=== PATIENT | female | born 1985 | race Caucasian/White ===

== ENCOUNTER 2018-02-03 00:55 | Emergency (ER) | payer OTHER, SELFPAY ==
[2018-02-03 01:06] VITALS: BP 114/78; PULSE 65; RESP 16; TEMP 36.2; O2SAT 99; BMI 45.4
--- NOTE | 2018-02-03 01:39 | DI.RAD.S_ITS ---
PROCEDURE: XR ELBOW RT MIN 3V INDICATIONS: elbow pain after pronation injury, over radial head TECHNIQUE: 4 views of the elbow were acquired. COMPARISON: None. FINDINGS: Bones: No fractures or dislocations. No suspicious bony lesions. Soft tissues: No elbow joint effusion. No suspicious soft tissue calcifications. IMPRESSION: No visualized acute fracture or dislocation. However, if clinical concern and/or pain persist, short interval imaging followup in 7-10 days is recommended, as occult injury cannot be definitively excluded. Dictated by: Katlin Abdul M.D. on 02/03/2018 at 9:18 Approved by: Katlin Abdul M.D. on 02/03/2018 at 9:18
--- NOTE | 2018-02-03 01:45 | ED.UPPEXIN ---
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 She was lifting a heavy basket of [place] fries and attempting to foot them over when she felt a sudden pop in her elbow since then she has had increasing pain with range of motion and some numbness in her fingers. She denies weakness. She denies any history of the same. Related Data Home Medications Medication Instructions Recorded Confirmed norethindrone (contraceptive) 0.35 mg PO QDAY #0 06/01/17 12/19/17 [Polina] Previous Rx's Medication Instructions Recorded norethindrone acetate 5 mg PO DAILY #10 tab 06/01/17 benzonatate 100 mg PO TIDP PRN #30 cap 06/13/17 ondansetron [Zofran ODT] 4 mg SUBLINGUAL Q6HP PRN #10 odt 06/13/17 norethindrone acetate [Aygestin] 5 mg PO QDAY #90 tab 06/18/17 hydrocodone-acetaminophen [[place]] 1 tab PO Q4HP PRN #20 tab 08/01/17 acyclovir 400 mg PO BID #60 tab 09/04/17 albuterol sulfate [Ventolin HFA] 2 puff INH QIDP PRN #1 ea 10/03/17 metformin 500 mg tablet 500 mg PO BID #60 tab 12/19/17 spironolactone 25 mg tablet 25 mg PO BID #60 tab 12/19/17 topiramate 50 mg tablet 50 mg PO BID #60 tab 12/19/17 Allergies Allergy/AdvReac Type Severity Reaction Status Date / Time citalopram Allergy Mild DEHYDRATED, Verified 12/19/17 11:01 N/V, MIGRAINES loratadine [From CLARITIN] Allergy Unknown Verified 12/19/17 11:01 milk Allergy Unknown Verified 12/19/17 11:01 shellfish derived Allergy Unknown Verified 12/19/17 11:01 sumatriptan [From IMITREX] Allergy Unknown Verified 12/19/17 11:01 Review of Systems Review of Systems All systems reviewed & are unremarkable except as noted in HPI and below Constitutional Denies chills, Denies fever(s), Denies lethargy and Denies weakness Eyes Denies change in vision, Denies eye discharge, Denies irritation and Denies loss of vision ENT Ears, Nose, Mouth, and Throat: Denies change in voice, Denies neck pain and Denies sore throat Cardiovascular Denies chest pain, Denies irregular heart rhythm, Denies lightheadedness, Denies palpitations, Denies dyspnea, Denies dyspnea on exertion and Denies orthopnea Respiratory Denies cough, Denies dyspnea, Denies dyspnea on exertion and Denies wheezing Gastrointestinal Gastrointestinal: Denies abdominal pain, Denies change in bowel habits, Denies diarrhea, Denies nausea and Denies vomiting Genitourinary Denies hematuria, Denies flank pain, Denies urinary incontinence and Denies urinary urgency Musculoskeletal Reports limited range of motion and Denies neck pain Integumentary/Breasts Denies pruritus, Denies erythema, Denies rash and Denies wounds Neurologic Denies confusion, Denies loss of vision and Denies weakness Psychiatric Denies anxiety, Denies confusion, Denies depression, Denies homicidal ideation and Denies suicidal ideation Endocrine Denies palpitations Hematologic/Lymphatic Denies easy bruising Allergic/Immunologic Denies wheezing PFSH Social History Smoking Status: Current every day smoker alcohol intake: current (Ocassionally) substance use type: marijuana Exam Narrative Exam Narrative: GEN: AOx3 and in mild distress EYES: Pupils are equal, round, and reactive to light and accommodation. Extraoccular muscles are intact bilaterally. There is no subconjunctival hemorrhage or exudate. CHEST: Lungs are clear to auscultation bilaterally and free of wheezes, rales, or rhonchi. Heart rate is regular rhythm, there are no murmurs, clicks, rubs, or gallops. There is no chest wall tenderness. ABD: Abdomen is soft and nontender. There is no guarding or rebound. Bowel sounds are normal in all 4 quadrants. There is no mass or organomegaly. EXT: Patient has full but painful range of motion at the right elbow. She is most tender over the radial head. There is no obvious deformity, warmth, erythema or edema. Patient is neurovascularly intact. SKIN: Warm, pink, and dry. No erythema or rash Initial Vital Signs Initial Vital Signs: Vital Signs Temperature 97.1 F L 02/03/18 01:06 Pulse Rate 65 02/03/18 01:06 Respiratory Rate 16 02/03/18 01:06 Blood Pressure 114/78 02/03/18 01:06 Pulse Oximetry 99 02/03/18 01:06 Course Orders Ordered: ED Orders 02/03/18 01:39 XR elbow RT min 3V Stat Discontinued Medications Ibuprofen (Advil) 800 mg PO NOW ONE Stop: 02/03/18 02:26 Last Admin: 02/03/18 02:25 Dose: 800 mg Vital Signs - 8 hr 02/03/18 01:06 02/03/18 02:18 Temperature 97.1 F L 98.0 F Pulse Rate 65 64 Respiratory Rate 16 18 Blood Pressure 114/78 Blood Pressure [Left Arm] 141/78 H Pulse Oximetry 99 99 Discharge Plan Departure Patient Disposition: Home, Self-Care Clinical Impression: Elbow strain Discharge Date/Time: 02/03/18 02:28 Interventions: ED Discharge Assessment Last Done: 02/03/18 02:28 Instructions: DI for Elbow Sprain Activity Restrictions/Additional Instructions: *You have been diagnosed with [ right elbow sprained ] *What to do: *Take medications as directed such as Tylenol or ibuprofen *Follow up with your primary care provider in 2-3 days, call for an appointment. Let them know you were seen in the Emergency Department and that we ask that you be seen in follow up *Return to ER if you should have any new, worsening or concerning symptoms, such as [ increasing pain, swelling, weakness or increasing numbness and tingling] Prescriptions: No Action spironolactone [Aldactone] 25 mg tablet 25 mg PO BID Qty: 60 RF: 3 metformin 500 mg tablet 500 mg PO BID Qty: 60 RF: 3 topiramate 50 mg tablet 50 mg PO BID Qty: 60 RF: 0 norethindrone (contraceptive) [[place]] 0.35 MG tablet 0.35 mg PO QDAY Qty: 0 RF: 0 norethindrone acetate 5 MG tablet 5 mg PO DAILY Qty: 10 RF: 0 benzonatate 100 MG capsule 100 mg PO TIDP PRNQty: 30 RF: 1 ondansetron [Zofran ODT] 4 MG tablet,disintegrating 4 mg Sublingual Q6HP PRNQty: 10 RF: 1 norethindrone acetate [Aygestin] 5 MG tablet 5 mg PO QDAY Qty: 90 RF: 3 hydrocodone-acetaminophen [[place]] 5 MG/325 MG tablet 1 tab PO Q4HP PRNQty: 20 RF: 0 acyclovir 400 MG tablet 400 mg PO BID Qty: 60 RF: 5 albuterol sulfate [Ventolin HFA] 90 MCG/PUFF HFA aerosol inhaler 2 puff INH QIDP PRNQty: 1 RF: 0 Referrals: Molly Baca PA-C [Primary Care Provider] -
--- NOTE | 2018-02-03 01:51 | ED_ITS ---
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 She was lifting a heavy basket of [place] fries and attempting to foot them over when she felt a sudden pop in her elbow since then she has had increasing pain with range of motion and some numbness in her fingers. She denies weakness. She denies any history of the same. Related Data Home Medications Medication Instructions Recorded Confirmed norethindrone (contraceptive) 0.35 mg PO QDAY #0 06/01/17 12/19/17 [Polina] Previous Rx's Medication Instructions Recorded norethindrone acetate 5 mg PO DAILY #10 tab 06/01/17 benzonatate 100 mg PO TIDP PRN #30 cap 06/13/17 ondansetron [Zofran ODT] 4 mg SUBLINGUAL Q6HP PRN #10 odt 06/13/17 norethindrone acetate [Aygestin] 5 mg PO QDAY #90 tab 06/18/17 hydrocodone-acetaminophen [[place]] 1 tab PO Q4HP PRN #20 tab 08/01/17 acyclovir 400 mg PO BID #60 tab 09/04/17 albuterol sulfate [Ventolin HFA] 2 puff INH QIDP PRN #1 ea 10/03/17 metformin 500 mg tablet 500 mg PO BID #60 tab 12/19/17 spironolactone 25 mg tablet 25 mg PO BID #60 tab 12/19/17 topiramate 50 mg tablet 50 mg PO BID #60 tab 12/19/17 Allergies Allergy/AdvReac Type Severity Reaction Status Date / Time citalopram Allergy Mild DEHYDRATED, Verified 12/19/17 11:01 N/V, MIGRAINES loratadine [From CLARITIN] Allergy Unknown Verified 12/19/17 11:01 milk Allergy Unknown Verified 12/19/17 11:01 shellfish derived Allergy Unknown Verified 12/19/17 11:01 sumatriptan [From IMITREX] Allergy Unknown Verified 12/19/17 11:01 Review of Systems Review of Systems All systems reviewed & are unremarkable except as noted in HPI and below Constitutional Denies chills, Denies fever(s), Denies lethargy and Denies weakness Eyes Denies change in vision, Denies eye discharge, Denies irritation and Denies loss of vision ENT Ears, Nose, Mouth, and Throat: Denies change in voice, Denies neck pain and Denies sore throat Cardiovascular Denies chest pain, Denies irregular heart rhythm, Denies lightheadedness, Denies palpitations, Denies dyspnea, Denies dyspnea on exertion and Denies orthopnea Respiratory Denies cough, Denies dyspnea, Denies dyspnea on exertion and Denies wheezing Gastrointestinal Gastrointestinal: Denies abdominal pain, Denies change in bowel habits, Denies diarrhea, Denies nausea and Denies vomiting Genitourinary Denies hematuria, Denies flank pain, Denies urinary incontinence and Denies urinary urgency Musculoskeletal Reports limited range of motion and Denies neck pain Integumentary/Breasts Denies pruritus, Denies erythema, Denies rash and Denies wounds Neurologic Denies confusion, Denies loss of vision and Denies weakness Psychiatric Denies anxiety, Denies confusion, Denies depression, Denies homicidal ideation and Denies suicidal ideation Endocrine Denies palpitations Hematologic/Lymphatic Denies easy bruising Allergic/Immunologic Denies wheezing PFSH Social History Smoking Status: Current every day smoker alcohol intake: current (Ocassionally) substance use type: marijuana Exam Narrative Exam Narrative: GEN: AOx3 and in mild distress EYES: Pupils are equal, round, and reactive to light and accommodation. Extraoccular muscles are intact bilaterally. There is no subconjunctival hemorrhage or exudate. CHEST: Lungs are clear to auscultation bilaterally and free of wheezes, rales, or rhonchi. Heart rate is regular rhythm, there are no murmurs, clicks, rubs, or gallops. There is no chest wall tenderness. ABD: Abdomen is soft and nontender. There is no guarding or rebound. Bowel sounds are normal in all 4 quadrants. There is no mass or organomegaly. EXT: Patient has full but painful range of motion at the right elbow. She is most tender over the radial head. There is no obvious deformity, warmth, erythema or edema. Patient is neurovascularly intact. SKIN: Warm, pink, and dry. No erythema or rash Initial Vital Signs Initial Vital Signs: Vital Signs Temperature 97.1 F L 02/03/18 01:06 Pulse Rate 65 02/03/18 01:06 Respiratory Rate 16 02/03/18 01:06 Blood Pressure 114/78 02/03/18 01:06 Pulse Oximetry 99 02/03/18 01:06 Course Orders Ordered: ED Orders 02/03/18 01:39 XR elbow RT min 3V Stat Discontinued Medications Ibuprofen (Advil) 800 mg PO NOW ONE Stop: 02/03/18 02:26 Last Admin: 02/03/18 02:25 Dose: 800 mg Vital Signs - 8 hr 02/03/18 01:06 02/03/18 02:18 Temperature 97.1 F L 98.0 F Pulse Rate 65 64 Respiratory Rate 16 18 Blood Pressure 114/78 Blood Pressure [Left Arm] 141/78 H Pulse Oximetry 99 99 Discharge Plan Departure Patient Disposition: Home, Self-Care Clinical Impression: Elbow strain Discharge Date/Time: 02/03/18 02:28 Interventions: ED Discharge Assessment Last Done: 02/03/18 02:28 Instructions: DI for Elbow Sprain Activity Restrictions/Additional Instructions: *You have been diagnosed with [ right elbow sprained ] *What to do: *Take medications as directed such as Tylenol or ibuprofen *Follow up with your primary care provider in 2-3 days, call for an appointment. Let them know you were seen in the Emergency Department and that we ask that you be seen in follow up *Return to ER if you should have any new, worsening or concerning symptoms , such as [ increasing pain, swelling, weakness or increasing numbness and tingling] Prescriptions: No Action spironolactone [Aldactone] 25 mg tablet 25 mg PO BID Qty: 60 RF: 3 metformin 500 mg tablet 500 mg PO BID Qty: 60 RF: 3 topiramate 50 mg tablet 50 mg PO BID Qty: 60 RF: 0 norethindrone (contraceptive) [[place]] 0.35 MG tablet 0.35 mg PO QDAY Qty: 0 RF: 0 norethindrone acetate 5 MG tablet 5 mg PO DAILY Qty: 10 RF: 0 benzonatate 100 MG capsule 100 mg PO TIDP PRNQty: 30 RF: 1 ondansetron [Zofran ODT] 4 MG tablet,disintegrating 4 mg Sublingual Q6HP PRNQty: 10 RF: 1 norethindrone acetate [Aygestin] 5 MG tablet 5 mg PO QDAY Qty: 90 RF: 3 hydrocodone-acetaminophen [[place]] 5 MG/325 MG tablet 1 tab PO Q4HP PRNQty: 20 RF: 0 acyclovir 400 MG tablet 400 mg PO BID Qty: 60 RF: 5 albuterol sulfate [Ventolin HFA] 90 MCG/PUFF HFA aerosol inhaler 2 puff INH QIDP PRNQty: 1 RF: 0 Referrals: Molly Baca PA-C [Primary Care Provider] -
[2018-02-03 02:18] VITALS: BP 141/78; PULSE 64; RESP 18; TEMP 36.7; O2SAT 99
[2018-02-03] MEDS: IBUPROFEN 400 MG TABLET 800 MG PO (02:25)
== END 2018-02-03 02:28 | disposition home or self-care (01) ==
PROVIDERS: Emergency Provider Emergency Medicine; Family Provider Physician Assistant; PCP Physician Assistant
DX: S56.911A Strain of unspecified muscles, fascia and tendons at forearm level, right arm, initial encounter (principal); T73.3XXA Exhaustion due to excessive exertion, initial encounter; Y99.0 Civilian activity done for income or pay
CPT/HCPCS: 73080; 99282; 99283

== ENCOUNTER 2018-03-16 16:14 | Emergency (ER) | payer OTHER, MEDICAID, SELFPAY ==
[2018-03-16 16:47] VITALS: BP 129/71; PULSE 62; RESP 18; TEMP 36.9; O2SAT 99; BMI 45.4
--- NOTE | 2018-03-16 18:06 | ED.FEMALEGU ---
HPI - Female Genitourinary <Taylor Walton PA-C - Last Filed: 03/16/18 21:56> General Chief complaint: Vaginal Bleeding Stated complaint: VAGINAL PROBLEMS Time Seen by Provider: 03/16/18 17:59 Source: patient Mode of arrival: ambulatory Limitations: no limitations History of Present Illness HPI Narrative: This 32-year-old female who has a history of PCOS complains of pelvic pain and abnormal bleeding. She states that she has been having recurrent problems with bleeding since she has not been able to take her norethindrone every day due to insurance issues. She states that she took this 2 weeks ago will when she started bleeding again and stopped after 3 days. 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 She indicates that this is through the pelvic area and now radiated to her back. She denies any new urinary symptoms or discharge. She states that the bleeding has actually let up somewhat. She denies any fever, bowel complaints, or other new symptoms on systems review. She has not taken any pain medication for this Related Data Home Medications Medication Instructions Recorded Confirmed norethindrone (contraceptive) 0.35 mg PO QDAY #0 06/01/17 02/19/18 [Polina] benzonatate 100 mg capsule 100 mg PO TIDP PRN cap 02/19/18 Previous Rx's Medication Instructions Recorded norethindrone acetate 5 mg PO DAILY #10 tab 06/01/17 ondansetron [Zofran ODT] 4 mg SUBLINGUAL Q6HP PRN #10 odt 06/13/17 norethindrone acetate [Aygestin] 5 mg PO QDAY #90 tab 06/18/17 acyclovir 400 mg PO BID #60 tab 09/04/17 albuterol sulfate [Ventolin HFA] 2 puff INH QIDP PRN #1 ea 10/03/17 metformin 500 mg tablet 500 mg PO BID #60 tab 12/19/17 spironolactone 25 mg tablet 25 mg PO BID #60 tab 12/19/17 topiramate 50 mg tablet 50 mg PO BID #60 tab 12/19/17 tramadol 50 mg tablet 50 mg PO Q6H #30 tab 02/19/18 Allergies Allergy/AdvReac Type Severity Reaction Status Date / Time citalopram Allergy Mild DEHYDRATED, Verified 02/19/18 14:04 N/V, MIGRAINES loratadine [From CLARITIN] Allergy Unknown Vomiting Verified 03/16/18 16:53 milk Allergy Unknown Verified 03/16/18 16:53 shellfish derived Allergy Unknown Anaphylaxis Verified 03/16/18 16:53 sumatriptan [From IMITREX] Allergy Unknown Vomiting Verified 03/16/18 16:53 Review of Systems <Taylor Walton PA-C - Last Filed: 03/16/18 21:56> Review of Systems All systems reviewed & are unremarkable except as noted in HPI and below Exam <Taylor Walton PA-C - Last Filed: 03/16/18 21:56> Narrative Exam Narrative: GENERAL APPEARANCE: Patient sitting comfortably, in no distress. HEENT: PERRL, EOMI, no scleral icterus, conjunctivae pink NECK: Supple LUNGS: Clear to auscultation bilaterally. HEART: Rate and rhythm regular, normal S1 and S2, no S3 or S4. ABDOMEN: Obese, nondistended, bowel sounds present x 4 quadrants, no masses palpable, no hepatosplenomegaly, no CVAT. She has localized tenderness in the suprapubic area without guarding or rebound EXTREMITIES: No edema, no cyanosis DERMATOLOGIC: No jaundice or exanthem NEUROLOGIC: Alert and oriented with normal speech and coordination : Normal external genitalia, normal vaginal mucosa without lesions or discharge. No CMT or adnexal tenderness. She does have some tenderness with speculum exam Initial Vital Signs Initial Vital Signs: Vital Signs Temperature 98.4 F 03/16/18 16:47 Pulse Rate 62 03/16/18 16:47 Respiratory Rate 18 03/16/18 16:47 Blood Pressure 129/71 03/16/18 16:47 Pulse Oximetry 99 03/16/18 16:47 <Kem Payan DO - Last Filed: 03/16/18 22:06> Initial Vital Signs Initial Vital Signs: Vital Signs Temperature 98.4 F 03/16/18 16:47 Pulse Rate 62 03/16/18 16:47 Respiratory Rate 18 03/16/18 16:47 Blood Pressure 129/71 03/16/18 16:47 Pulse Oximetry 99 03/16/18 16:47 Course <Taylor Walton PA-C - Last Filed: 03/16/18 21:56> Additional Information: Source of patient's pain was not clear this evening. There were no acute findings on exam nor her ultrasound. Appeared associated with tampon use. Her bleeding had improved at the time of discharge. She will rest at home this evening, given pain medication for tonight. 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 and return in the interim if any acutely worsening symptoms Orders Ordered: ED Orders 03/16/18 18:40 US pelvic complete Stat Discontinued Medications Ibuprofen (Advil) 800 mg PO NOW ONE Stop: 03/16/18 19:59 Last Admin: 03/16/18 20:08 Dose: 800 mg Oxycodone/Acetaminophen (Endocet 5/325 Prepack) 1 bottle MISC SEEINSTR ONE Stop: 03/16/18 21:09 Last Admin: 03/16/18 21:28 Dose: 1 bottle Vital Signs - 8 hr 03/16/18 16:47 03/16/18 18:49 03/16/18 20:42 Temperature 98.4 F Pulse Rate 62 55 L 57 L Respiratory Rate 18 17 16 Blood Pressure 129/71 Blood Pressure [Left Arm] 142/79 H 135/76 Pulse Oximetry 99 100 100 <Kem Payan DO - Last Filed: 03/16/18 22:06> Orders Ordered: ED Orders 03/16/18 18:40 US pelvic complete Stat Discontinued Medications Ibuprofen (Advil) 800 mg PO NOW ONE Stop: 03/16/18 19:59 Last Admin: 03/16/18 20:08 Dose: 800 mg Oxycodone/Acetaminophen (Endocet 5/325 [place]ack) 1 bottle MISC SEEINSTR ONE Stop: 03/16/18 21:09 Last Admin: 03/16/18 21:28 Dose: 1 bottle Vital Signs - 8 hr 03/16/18 16:47 03/16/18 18:49 03/16/18 20:42 Temperature 98.4 F Pulse Rate 62 55 L 57 L Respiratory Rate 18 17 16 Blood Pressure 129/71 Blood Pressure [Left Arm] 142/79 H 135/76 Pulse Oximetry 99 100 100 MDM - Female Genitourinary <Taylor Walton PA-C - Last Filed: 03/16/18 21:56> Lab Data Point of Care Testing Test Results Negative Urine Dip Bedside Urine Glucose Negative Bedside Urine Bilirubin - Negative Bedside Urine Ketone - Negative Urine Specific [place] 1.015 Bedside Urine Occult Blood + Bedside Urine pH 6.0 Bedside Urine Protein - Negative Bedside Urine Urobilinogen - Negative Bedside Urine Nitrite - Negative Bedside Urine Leukocytes - Negative Esterase Imaging Data US pelvis: Radiologist's impression: [address] [address] Ultrasound Report Signed Patient: Rosita Cooley MR#: [id number] : 1985 Acct:[id number] Age/Sex: 32 / F Date of Service: 03/16/18 Loc: ED Accession Number: [id number] Procedure: US pelvic complete Ordering Provider: Taylor Walton P.A-C PROCEDURE: US PELVIC COMPLETE INDICATIONS: PAIN, BLEEDING TECHNIQUE: Real-time scanning was performed of the pelvic organs, with image documentation. Additional endovaginal scanning was necessary due to incomplete visualization of the adnexal and endometrial structures by transabdominal scanning. COMPARISON: None. FINDINGS: Transabdominal scanning: Limited scanning through the kidneys shows no hydronephrosis. No pathologic free abdominal or pelvic fluid. Endovaginal scanning: Uterus: Uterus is normal in size at 6.9 x 3.2 x 4.4 cm. The endometrium measures 7.2 mm in combined thickness. Ovaries: The right ovary measures 3.7 x 2.7 x 2.5 cm and the left ovary measures 3.2 x 3.0 x 3.2 cm. Both ovaries have a normal echotexture. IMPRESSION: 1. Unremarkable pelvic ultrasound. Dictated by: Yumiko Claire M.D. on 03/16/2018 at 20:58 Approved by: Yumiko Claire M.D. on 03/16/2018 at 20:59 <Kem Payan DO - Last Filed: 03/16/18 22:06> Lab Data Point of Care Testing Test Results Negative Urine Dip Bedside Urine Glucose Negative Bedside Urine Bilirubin - Negative Bedside Urine Ketone - Negative Urine Specific [place] 1.015 Bedside Urine Occult Blood + Bedside Urine pH 6.0 Bedside Urine Protein - Negative Bedside Urine Urobilinogen - Negative Bedside Urine Nitrite - Negative Bedside Urine Leukocytes - Negative Esterase Discharge Plan Departure Patient Disposition: Home Clinical Impression: Pelvic pain, DUB (dysfunctional uterine bleeding) Discharge Date/Time: 03/16/18 21:34 Interventions: ED Discharge Assessment Last Done: 03/16/18 21:33 Instructions: DI for Pelvic Pain Activity Restrictions/Additional Instructions: Return if you have new or acutely worsening symptoms. Otherwise, please return home, and try using a hot pack and you can take some of the Percocet that we gave you. Please continue ibuprofen. Avoid using tampons. Please call Dr. Yadav on Sunday morning (I have written you an off work note for tomorrow) Prescriptions: No Action spironolactone [Aldactone] 25 mg tablet 25 mg PO BID Qty: 60 RF: 3 metformin 500 mg tablet 500 mg PO BID Qty: 60 RF: 3 topiramate 50 mg tablet 50 mg PO BID Qty: 60 RF: 0 benzonatate 100 mg capsule 100 mg PO TIDP PRNRF: 0 tramadol 50 mg tablet 50 mg PO Q6H Qty: 30 RF: 0 norethindrone (contraceptive) [[place]] 0.35 MG tablet 0.35 mg PO QDAY Qty: 0 RF: 0 norethindrone acetate 5 MG tablet 5 mg PO DAILY Qty: 10 RF: 0 ondansetron [Zofran ODT] 4 MG tablet,disintegrating 4 mg Sublingual Q6HP PRNQty: 10 RF: 1 norethindrone acetate [Aygestin] 5 MG tablet 5 mg PO QDAY Qty: 90 RF: 3 acyclovir 400 MG tablet 400 mg PO BID Qty: 60 RF: 5 albuterol sulfate [Ventolin HFA] 90 MCG/PUFF HFA aerosol inhaler 2 puff INH QIDP PRNQty: 1 RF: 0 Referrals: Molly Baac PA-C [Primary Care Provider] - Smith Yadav MD [Physician] - Stand Alone Forms: Work/School Restrictions <Kem Payan DO - Last Filed: 03/16/18 22:06> [facility] Att[facility]: I was immediately available in the department for consultation. Documentation has been reviewed. I agree with assessment and plan.
--- NOTE | 2018-03-16 18:40 | DI.US.S_ITS ---
PROCEDURE: US PELVIC COMPLETE INDICATIONS: PAIN, BLEEDING TECHNIQUE: Real-time scanning was performed of the pelvic organs, with image documentation. Additional endovaginal scanning was necessary due to incomplete visualization of the adnexal and endometrial structures by transabdominal scanning. COMPARISON: None. FINDINGS: Transabdominal scanning: Limited scanning through the kidneys shows no hydronephrosis. No pathologic free abdominal or pelvic fluid. Endovaginal scanning: Uterus: Uterus is normal in size at 6.9 x 3.2 x 4.4 cm. The endometrium measures 7.2 mm in combined thickness. Ovaries: The right ovary measures 3.7 x 2.7 x 2.5 cm and the left ovary measures 3.2 x 3.0 x 3.2 cm. Both ovaries have a normal echotexture. IMPRESSION: 1. Unremarkable pelvic ultrasound. Dictated by: Yumiko Claire M.D. on 03/16/2018 at 20:58 Approved by: Yumiko Claire M.D. on 03/16/2018 at 20:59
[2018-03-16 18:49] VITALS: BP 142/79; PULSE 55; RESP 17; O2SAT 100
--- NOTE | 2018-03-16 19:02 | ED_ITS ---
HPI - Female Genitourinary <Taylor Walton PA-C - Last Filed: 03/16/18 21:56> General Chief complaint: Vaginal Bleeding Stated complaint: VAGINAL PROBLEMS Time Seen by Provider: 03/16/18 17:59 Source: patient Mode of arrival: ambulatory Limitations: no limitations History of Present Illness HPI Narrative: This 32-year-old female who has a history of PCOS complains of pelvic pain and abnormal bleeding. She states that she has been having recurrent problems with bleeding since she has not been able to take her norethindrone every day due to insurance issues. She states that she took this 2 weeks ago will when she started bleeding again and stopped after 3 days. Yesterday she had increased heavy bleeding and cramps and plan to see her ear muff assembler on Sunday, however a little while before arrival she had put a tampon in, went to take it out 20 min later and she states that she had acute pain, she had to wrap the string on her finger and tug, and has had worsening pain since. She indicates that this is through the pelvic area and now radiated to her back. She denies any new urinary symptoms or discharge. She states that the bleeding has actually let up somewhat. She denies any fever, bowel complaints, or other new symptoms on systems review. She has not taken any pain medication for this Related Data Home Medications Medication Instructions Recorded Confirmed norethindrone (contraceptive) 0.35 mg PO QDAY #0 06/01/17 02/19/18 [Polina] benzonatate 100 mg capsule 100 mg PO TIDP PRN cap 02/19/18 Previous Rx's Medication Instructions Recorded norethindrone acetate 5 mg PO DAILY #10 tab 06/01/17 ondansetron [Zofran ODT] 4 mg SUBLINGUAL Q6HP PRN #10 odt 06/13/17 norethindrone acetate [Aygestin] 5 mg PO QDAY #90 tab 06/18/17 acyclovir 400 mg PO BID #60 tab 09/04/17 albuterol sulfate [Ventolin HFA] 2 puff INH QIDP PRN #1 ea 10/03/17 metformin 500 mg tablet 500 mg PO BID #60 tab 12/19/17 spironolactone 25 mg tablet 25 mg PO BID #60 tab 12/19/17 topiramate 50 mg tablet 50 mg PO BID #60 tab 12/19/17 tramadol 50 mg tablet 50 mg PO Q6H #30 tab 02/19/18 Allergies Allergy/AdvReac Type Severity Reaction Status Date / Time citalopram Allergy Mild DEHYDRATED, Verified 02/19/18 14:04 N/V, MIGRAINES loratadine [From CLARITIN] Allergy Unknown Vomiting Verified 03/16/18 16:53 milk Allergy Unknown Verified 03/16/18 16:53 shellfish derived Allergy Unknown Anaphylaxis Verified 03/16/18 16:53 sumatriptan [From IMITREX] Allergy Unknown Vomiting Verified 03/16/18 16:53 Review of Systems <Taylor Walton PA-C - Last Filed: 03/16/18 21:56> Review of Systems All systems reviewed & are unremarkable except as noted in HPI and below Exam <Taylor Walton PA-C - Last Filed: 03/16/18 21:56> Narrative Exam Narrative: GENERAL APPEARANCE: Patient sitting comfortably, in no distress. HEENT: PERRL, EOMI, no scleral icterus, conjunctivae pink NECK: Supple LUNGS: Clear to auscultation bilaterally. HEART: Rate and rhythm regular, normal S1 and S2, no S3 or S4. ABDOMEN: Obese, nondistended, bowel sounds present x 4 quadrants, no masses palpable, no hepatosplenomegaly, no CVAT. She has localized tenderness in the suprapubic area without guarding or rebound EXTREMITIES: No edema, no cyanosis DERMATOLOGIC: No jaundice or exanthem NEUROLOGIC: Alert and oriented with normal speech and coordination : Normal external genitalia, normal vaginal mucosa without lesions or discharge. No CMT or adnexal tenderness. She does have some tenderness with speculum exam Initial Vital Signs Initial Vital Signs: Vital Signs Temperature 98.4 F 03/16/18 16:47 Pulse Rate 62 03/16/18 16:47 Respiratory Rate 18 03/16/18 16:47 Blood Pressure 129/71 03/16/18 16:47 Pulse Oximetry 99 03/16/18 16:47 <Kem Payan DO - Last Filed: 03/16/18 22:06> Initial Vital Signs Initial Vital Signs: Vital Signs Temperature 98.4 F 03/16/18 16:47 Pulse Rate 62 03/16/18 16:47 Respiratory Rate 18 03/16/18 16:47 Blood Pressure 129/71 03/16/18 16:47 Pulse Oximetry 99 03/16/18 16:47 Course <Taylor Walton PA-C - Last Filed: 03/16/18 21:56> Additional Information: Source of patient's pain was not clear this evening. There were no acute findings on exam nor her ultrasound. Appeared associated with tampon use. Her bleeding had improved at the time of discharge. She will rest at home this evening, given pain medication for tonight. She will call her diabetic educator on Sunday and return in the interim if any acutely worsening symptoms Orders Ordered: ED Orders 03/16/18 18:40 US pelvic complete Stat Discontinued Medications Ibuprofen (Advil) 800 mg PO NOW ONE Stop: 03/16/18 19:59 Last Admin: 03/16/18 20:08 Dose: 800 mg Oxycodone/Acetaminophen (Endocet 5/325 Prepack) 1 bottle MISC SEEINSTR ONE Stop: 03/16/18 21:09 Last Admin: 03/16/18 21:28 Dose: 1 bottle Vital Signs - 8 hr 03/16/18 16:47 03/16/18 18:49 03/16/18 20:42 Temperature 98.4 F Pulse Rate 62 55 L 57 L Respiratory Rate 18 17 16 Blood Pressure 129/71 Blood Pressure [Left Arm] 142/79 H 135/76 Pulse Oximetry 99 100 100 <Kem Payan DO - Last Filed: 03/16/18 22:06> Orders Ordered: ED Orders 03/16/18 18:40 US pelvic complete Stat Discontinued Medications Ibuprofen (Advil) 800 mg PO NOW ONE Stop: 03/16/18 19:59 Last Admin: 03/16/18 20:08 Dose: 800 mg Oxycodone/Acetaminophen (Endocet 5/325 Prepack) 1 bottle MISC SEEINSTR ONE Stop: 03/16/18 21:09 Last Admin: 03/16/18 21:28 Dose: 1 bottle Vital Signs - 8 hr 03/16/18 16:47 03/16/18 18:49 03/16/18 20:42 Temperature 98.4 F Pulse Rate 62 55 L 57 L Respiratory Rate 18 17 16 Blood Pressure 129/71 Blood Pressure [Left Arm] 142/79 H 135/76 Pulse Oximetry 99 100 100 MDM - Female Genitourinary <Taylor Walton PA-C - Last Filed: 03/16/18 21:56> Lab Data Point of Care Testing Test Results Negative Urine Dip Bedside Urine Glucose Negative Bedside Urine Bilirubin - Negative Bedside Urine Ketone - Negative Urine Specific [place] 1.015 Bedside Urine Occult Blood + Bedside Urine pH 6.0 Bedside Urine Protein - Negative Bedside Urine Urobilinogen - Negative Bedside Urine Nitrite - Negative Bedside Urine Leukocytes - Negative Esterase Imaging Data US pelvis: Radiologist's impression: [address] [address] Ultrasound Report Signed Patient: Rosita Cooley MR#: [id number] : 1985 Acct:[id number] Age/Sex: 32 / F Date of Service: 03/16/18 Loc: ED Accession Number: [id number] Procedure: US pelvic complete Ordering Provider: Taylor Walton P.A-C PROCEDURE: US PELVIC COMPLETE INDICATIONS: PAIN, BLEEDING TECHNIQUE: Real-time scanning was performed of the pelvic organs, with image documentation. Additional endovaginal scanning was necessary due to incomplete visualization of the adnexal and endometrial structures by transabdominal scanning. COMPARISON: None. FINDINGS: Transabdominal scanning: Limited scanning through the kidneys shows no hydronephrosis. No pathologic free abdominal or pelvic fluid. Endovaginal scanning: Uterus: Uterus is normal in size at 6.9 x 3.2 x 4.4 cm. The endometrium measures 7.2 mm in combined thickness. Ovaries: The right ovary measures 3.7 x 2.7 x 2.5 cm and the left ovary measures 3.2 x 3.0 x 3.2 cm. Both ovaries have a normal echotexture. IMPRESSION: 1. Unremarkable pelvic ultrasound. Dictated by: Yumiko Claire M.D. on 03/16/2018 at 20:58 Approved by: Yumiko Claire M.D. on 03/16/2018 at 20:59 <Kem Payan DO - Last Filed: 03/16/18 22:06> Lab Data Point of Care Testing Test Results Negative Urine Dip Bedside Urine Glucose Negative Bedside Urine Bilirubin - Negative Bedside Urine Ketone - Negative Urine Specific [place] 1.015 Bedside Urine Occult Blood + Bedside Urine pH 6.0 Bedside Urine Protein - Negative Bedside Urine Urobilinogen - Negative Bedside Urine Nitrite - Negative Bedside Urine Leukocytes - Negative Esterase Discharge Plan Departure Patient Disposition: Home Clinical Impression: Pelvic pain, DUB (dysfunctional uterine bleeding) Discharge Date/Time: 03/16/18 21:34 Interventions: ED Discharge Assessment Last Done: 03/16/18 21:33 Instructions: DI for Pelvic Pain Activity Restrictions/Additional Instructions: Return if you have new or acutely worsening symptoms. Otherwise, please return home, and try using a hot pack and you can take some of the Percocet that we gave you. Please continue ibuprofen. Avoid using tampons. Please call Dr. Yadav on Sunday morning (I have written you an off work note for tomorrow) Prescriptions: No Action spironolactone [Aldactone] 25 mg tablet 25 mg PO BID Qty: 60 RF: 3 metformin 500 mg tablet 500 mg PO BID Qty: 60 RF: 3 topiramate 50 mg tablet 50 mg PO BID Qty: 60 RF: 0 benzonatate 100 mg capsule 100 mg PO TIDP PRNRF: 0 tramadol 50 mg tablet 50 mg PO Q6H Qty: 30 RF: 0 norethindrone (contraceptive) [Polina] 0.35 MG tablet 0.35 mg PO QDAY Qty: 0 RF: 0 norethindrone acetate 5 MG tablet 5 mg PO DAILY Qty: 10 RF: 0 ondansetron [Zofran ODT] 4 MG tablet,disintegrating 4 mg Sublingual Q6HP PRNQty: 10 RF: 1 norethindrone acetate [Aygestin] 5 MG tablet 5 mg PO QDAY Qty: 90 RF: 3 acyclovir 400 MG tablet 400 mg PO BID Qty: 60 RF: 5 albuterol sulfate [Ventolin HFA] 90 MCG/PUFF HFA aerosol inhaler 2 puff INH QIDP PRNQty: 1 RF: 0 Referrals: Molly Baca PA-C [Primary Care Provider] - Smith Yadav MD [Physician] - Stand Alone Forms: Work/School Restrictions <Kem Payan DO - Last Filed: 03/16/18 22:06> [facility] Att[facility]: I was immediately available in the department for consultation. Documentation has been reviewed. I agree with assessment and plan.
--- NOTE | 2018-03-16 19:08 | PC.NURSE ---
Patient reports vaginal bleeding started last night took RX meds suppose to take with bleeding. Today approx 20min after placing tampon severe lower abd pain and vaginal pain. Patient state she spent 20-30min prying open her vagina to remove tampon it was like my body was hanging onto it patient reports ongoing severe lower abd pain, muscles I use to pee hurt Denies burning or urgency with urination. Bleeding has lightened up some today.
[2018-03-16] MEDS: IBUPROFEN 400 MG TABLET 800 MG PO (20:08)
[2018-03-16 20:42] VITALS: BP 135/76; PULSE 57; RESP 16; O2SAT 100
[2018-03-16] MEDS: OXYCODONE/APAP 5/325 PREPACK 1 BOTTLE MISC (21:28)
== END 2018-03-16 21:34 | disposition home or self-care (01) ==
PROVIDERS: Emergency Provider Internal Medicine; Family Provider Physician Assistant; PCP Physician Assistant
DX: R10.2 Pelvic and perineal pain (principal); N93.8 Other specified abnormal uterine and vaginal bleeding
CPT/HCPCS: 76830; 76856; 81003; 81025; 99283; 99284

== ENCOUNTER → 2018-03-19 16:12 | Outpatient (CLI) | payer OTHER, MEDICAID, SELFPAY ==
[2018-03-19 17:08] LABS: Hematocrit 40.8 % (36-46); Hemoglobin 13.3 g/dL (12.0-16.0); Mean Corpuscular HGB Conc 32.7 % (30-36); Mean Corpuscular Hemoglobin 28.2 PG (26-34); Mean Corpuscular Volume 86.2 fL (80-100); Platelet Count 351 X10^3/uL (150-400); Red Blood Cell Count 4.73 X10^6/uL (4.0-5.2); Red Cell Distribution Width 13.5 % (11.6-14.8); White Blood Cell Count 9.4 X10^3/uL (4.5-11.0)
[2018-03-19 18:16] LABS: Neutrophils Absolute Manual 5734 /uL (3000-5900); Total Cells Counted 100
[2018-03-19 18:17] LABS: RBC Morphology Normal Morphology
== END ==
PROVIDERS: Visit Provider Specialist
DX: N92.0 Excessive and frequent menstruation with regular cycle (principal)
CPT/HCPCS: 36415; 85025

== ENCOUNTER 2018-07-06 20:45 | Emergency (ER) | payer OTHER, MEDICAID, SELFPAY ==
[2018-07-06 20:58] VITALS: BP 129/71; PULSE 66; RESP 16; TEMP 36.4; O2SAT 99; BMI 44.1
--- NOTE | 2018-07-06 21:15 | ED.BACK ---
HPI - Back Pain/Injury General Chief Complaint: Back Pain/Injury Stated Complaint: says back problems Time Seen by Provider: 07/06/18 21:06 Source: patient Mode of arrival: ambulatory Limitations: no limitations History of Present Illness HPI Narrative: Patient is a 32-year-old female who has chronic ongoing back pain. She says she usually has a prescription of Flexeril which helped her however she is currently out and can't get to her PCP and till after the holiday. She is on her feet all day at work he feels like it is acting up. She denies numbness or tingling in her legs. No changes in bowel or bladder habits. She has not yet taken anything for pain. MD Complaint: back pain Location: lumbar spine and thoracic spine Severity: moderate Related Data Previous Rx's Medication Instructions Recorded acyclovir 400 mg PO BID #60 tab 09/04/17 albuterol sulfate [Ventolin HFA] 2 puff INH QIDP PRN #1 ea 10/03/17 norethindrone acetate 5 mg tablet 5 mg PO BID #180 tab 03/19/18 cyclobenzaprine 5 mg PO TID PRN #10 tab 07/06/18 Allergies Allergy/AdvReac Type Severity Reaction Status Date / Time citalopram Allergy Mild DEHYDRATED, Verified 05/21/18 16:58 N/V, MIGRAINES loratadine [From CLARITIN] Allergy Unknown Vomiting Verified 05/21/18 16:58 milk Allergy Unknown Verified 05/21/18 16:58 shellfish derived Allergy Unknown Anaphylaxis Verified 05/21/18 16:58 sumatriptan [From IMITREX] Allergy Unknown Vomiting Verified 05/21/18 16:58 Review of Systems Review of Systems GENERAL: Denies chills, fatigue, malaise, fever, sweats, travel HEENT: Denies sinus pain, ear pain, sore throat, difficulty swallowing, neck pain RESPIRATORY: Denies dyspnea, cough, wheezing, hemoptysis, sputum. CARDIOVASCULAR: Denies chest pain, palpitations, orthopnea, edema GASTROINTESTINAL: Denies nausea, vomiting, abdominal pain, diarrhea, constipation, melena. : Denies dysuria, frequency, incontinence, hematuria, urinary retention, flank pain. MUSCULOSKELETAL: Back pain, see HPI SKIN: No rash, no erythema, no pruritus NEUROLOGIC: Denies weakness, dizziness, headache, numbness, change in speech, confusion PSYCHIATRIC: No concerning psychosocial issues. 12 point review of systems is negative except for those stated above and HPI [facility] Medical History Ankle pain (Chronic Unknown) Anxiety (Chronic Unknown) Carpal tunnel syndrome (Chronic Unknown) Chlamydia (Chronic Unknown) Chronic back pain (Chronic Unknown) Depression (Chronic Unknown) Eczema (Chronic Unknown) Foot pain (Chronic Unknown) Generalized headaches (Chronic Unknown) Herpes (Chronic Unknown) Human papilloma virus (Chronic Unknown) Irregular menses (Chronic Unknown) Migraines (Chronic Unknown) Ovarian cyst (Chronic Unknown) PCOS (polycystic ovarian syndrome) (Chronic) PTSD (post-traumatic stress disorder) (Chronic Unknown) Seizures (Chronic Unknown) Abnormal Pap smear of cervix (Resolved Unknown) Fractures (Resolved Unknown) History of suicide attempt (Resolved) Kidney stones (Resolved Unknown) PID (pelvic inflammatory disease) (Resolved Unknown) Shoulder pain (Resolved Unknown) Surgical History History of cryosurgery (Resolved) Status post colposcopy (Resolved) Status post tonsillectomy and adenoidectomy (Resolved) Family History Father Age: 59 High cholesterol Malignant melanoma, unspecified site Grandmother Age: 73 Essential hypertension High cholesterol Lupus Mother Age: 57 Breast cancer High cholesterol Grandmother Cancer of blood vessel Social History Smoking Status: Former smoker alcohol intake: current substance use type: marijuana Exam Initial Vital Signs Initial Vital Signs: Vital Signs Temperature 97.6 F 07/06/18 20:58 Pulse Rate 66 07/06/18 20:58 Respiratory Rate 16 07/06/18 20:58 Blood Pressure 129/71 07/06/18 20:58 Pulse Oximetry 99 07/06/18 20:58 GENERAL: Alert overweight female in no acute distress HEENT: Head atraumatic,EOMI, pupils reactive, face symmetric, neck is supple CARDIOVASCULAR: Regular rate and rhythm without murmurs, rubs or gallops. RESPIRATORY: Breath sounds equal bilaterally, no wheezes rales or rhonchi. ABDOMEN: Soft, nontender. Normoactive bowel sounds all 4 quadrants. No guarding or rebound. BACK: No midline tenderness she is tender at the thoracolumbar junction and bilateral paraspinal muscles. Sensation intact in lower extremities : No CVA tenderness EXTREMITIES: Normal range of motion, no clubbing or edema. Neurovascularly intact NEUROLOGICAL: Alert and oriented x4.Normal gait and speech. Cranial nerves II through XII grossly intact. SKIN: Warm, dry, no laceration, no petechiae, no rashes or lesions. Course Orders Ordered: Discontinued Medications Cyclobenzaprine HCl (Flexeril 10 Mg Prepack) 1 bottle MISC SEEINSTR ONE Stop: 07/06/18 21:15 Last Admin: 07/06/18 21:29 Dose: 1 bottle Ketorolac Tromethamine (Toradol) 60 mg IM NOW ONE Stop: 07/06/18 21:15 Last Admin: 07/06/18 21:29 Dose: 60 mg Vital Signs - 8 hr 07/06/18 20:58 07/06/18 21:48 Temperature 97.6 F Pulse Rate 66 52 L Respiratory Rate 16 16 Blood Pressure 129/71 114/51 L Pulse Oximetry 99 99 Discharge Plan Departure Patient Disposition: Home Clinical Impression: Acute exacerbation of chronic low back pain Discharge Date/Time: 07/06/18 21:50 Interventions: ED Discharge Assessment Last Done: 07/06/18 21:48 Instructions: DI for Low Back Pain Activity Restrictions/Additional Instructions: *You have been diagnosed with acute on chronic back pain *What to do: Increase activity as tolerated light activity is encouraged, may try heating pad if needed *Continue to take medications as directed: FAXED TO [facility] IN [place] Flexeril 5 mg every 8 hr if needed for muscle spasm, this does cause drowsiness not recommended driving or operating heavy machinery Motrin 800 mg every 8 hr if needed for pain *Follow up with your primary care provider in 2-3 days *Return to ER if you should have numbness, tingling, lower extremity weakness or any new, worsening or concerning symptoms Prescriptions: New cyclobenzaprine 5 mg tablet 5 mg PO TID PRN (Reason: muscle spasm) Qty: 10 RF: 0 No Action acyclovir 400 MG tablet 400 mg PO BID Qty: 60 RF: 5 albuterol sulfate [Ventolin HFA] 90 MCG/PUFF HFA aerosol inhaler 2 puff INH QIDP PRNQty: 1 RF: 0 norethindrone acetate [Aygestin] 5 mg tablet 5 mg PO BID Qty: 180 RF: 1
[2018-07-06] MEDS: CYCLOBENZAPRINE 10 MG PREPACK 1 BOTTLE MISC (21:29)
[2018-07-06] MEDS: KETOROLAC 60 MG/2 ML VIAL IM (21:29)
[2018-07-06 21:48] VITALS: BP 114/51; PULSE 52; RESP 16; O2SAT 99
== END 2018-07-06 21:50 | disposition home or self-care (01) ==
PROVIDERS: Emergency Provider Emergency Medicine
DX: M54.5 Low back pain (principal); G89.29 Other chronic pain
CPT/HCPCS: 96372; 99282; 99283; J1885

== ENCOUNTER 2018-07-13 11:35 | Emergency (ER) | payer OTHER, MEDICAID, SELFPAY ==
[2018-07-13 11:42] VITALS: BP 122/86; PULSE 79; RESP 20; TEMP 36.2; O2SAT 97
[2018-07-13 12:42] VITALS: BP 130/75; PULSE 83; RESP 32; TEMP 36.9; O2SAT 98
--- NOTE | 2018-07-13 12:55 | ED.URI ---
HPI - URI/Sore Throat <Taylor Walton PA-C - Last Filed: 07/13/18 21:14> General Chief Complaint: Upper Respiratory Symptoms Stated Complaint: history of seizures, shortness of breath, lost 15 Time Seen by Provider: 07/13/18 12:27 Source: patient Mode of arrival: ambulatory Limitations: no limitations History of Present Illness HPI Narrative: This 32-year-old female comes in due to worsening upper respiratory symptoms. She states that she has chronic cough, but for 4-5 days now (since Rian night) this has been worse, she has been coughing up purulent sputum. She states that she has had fevers at home, up to 1022 days ago, 99.9 yesterday per she feels achy and fatigued, especially in her legs and calves. She states that she flew back here from visiting family on the and that day, multiple family members tested positive for influenza and her grandfather was hospitalized. She states that yesterday, she was also feeling sick to her stomach and vomited 3 times. She states that she has not vomited today, has been keeping down water and chicken broth though somewhat poor appetite. She states that her chest feels tight and achy with the cough, and it is hard to get a deep breath (she does have a history of needing inhalers when she is sick). She states that ?I do not have heart pain?. She denies abdominal pain. She has not had any new swelling in her extremities. She states that she tried to go to work today and was only at work for a little over 0.5 hr when she started feeling weak and like she could pass out or have a seizure, better after she sat down. Only other new complaint on systems review is that she states it took a long time for her lower arm and hand numbness to resolve after blood pressure taken here, longer than when checked in office. She does not think any possibility of , on OCP Related Data Previous Rx's Medication Instructions Recorded acyclovir 400 mg PO BID #60 tab 09/04/17 albuterol sulfate [Ventolin HFA] 2 puff INH QIDP PRN #1 ea 10/03/17 norethindrone acetate 5 mg tablet 5 mg PO BID #180 tab 03/19/18 cyclobenzaprine 5 mg PO TID PRN #10 tab 07/06/18 ondansetron 8 mg disintegrating 8 mg PO BID PRN #20 tab 07/12/18 tablet codeine-guaifenesin 5 ml PO Q4-6H PRN #120 ml 07/13/18 ibuprofen 800 mg PO Q8H #20 tab 07/13/18 Allergies Allergy/AdvReac Type Severity Reaction Status Date / Time citalopram Allergy Mild DEHYDRATED, Verified 07/12/18 13:29 N/V, MIGRAINES loratadine [From CLARITIN] Allergy Unknown Vomiting Verified 07/12/18 13:29 milk Allergy Unknown Verified 07/12/18 13:29 shellfish derived Allergy Unknown Anaphylaxis Verified 07/12/18 13:29 sumatriptan [From IMITREX] Allergy Unknown Vomiting Verified 07/12/18 13:29 Review of Systems <Taylor Walton PA-C - Last Filed: 07/13/18 21:14> Review of Systems All systems reviewed & are unremarkable except as noted in HPI and below Exam <Taylor Walton PA-C - Last Filed: 07/13/18 21:14> Narrative Exam Narrative: GENERAL APPEARANCE: Patient sitting comfortably, in no distress. EYES: PERRL, EOMI. ORAL CAVITY: Normal oropharynx. THROAT: Clear. NECK/THYROID: Neck supple, full range of motion, no cervical lymphadenopathy. LUNGS: Clear to auscultation bilaterally, no cough on exam. EXTREMITIES: Mild generalized tenderness throughout the lower extremities including the calves, no edema. Also mild tenderness in the upper extremities DERMATOLOGIC: No exanthem HEART: RRR without murmur, nl S1, S2, no S3 or S4. Initial Vital Signs Initial Vital Signs: Vital Signs Temperature 97.1 F L 07/13/18 11:42 Pulse Rate 79 07/13/18 11:42 Respiratory Rate 20 07/13/18 11:42 Blood Pressure 122/86 07/13/18 11:42 Pulse Oximetry 97 07/13/18 11:42 <Rocky Mckenzie DO - Last Filed: 07/14/18 07:08> Initial Vital Signs Initial Vital Signs: Vital Signs Temperature 97.1 F L 07/13/18 11:42 Pulse Rate 79 07/13/18 11:42 Respiratory Rate 20 07/13/18 11:42 Blood Pressure 122/86 07/13/18 11:42 Pulse Oximetry 97 07/13/18 11:42 Course <Taylor Walton PA-C - Last Filed: 07/13/18 21:14> Additional Information: Patient has a positive influenza test after multiple known exposures. She has been symptomatic for 4 or 5 days, explain to late for antiviral treatment. She is feeling markedly improved after nebulizer treatments. She will rest at home with supportive therapy, remain off work until afebrile and cough improved (she does have some chronic cough). She agreed to return if any acutely worsening symptoms Orders Ordered: Discontinued Medications Albuterol (Ventolin) 2.5 mg INH NOW ONE Stop: 07/13/18 13:20 Last Admin: 07/13/18 13:26 Dose: 2.5 mg Albuterol/Ipratropium (Duoneb) 3 ml INH NOW ONE Stop: 07/13/18 13:20 Last Admin: 07/13/18 13:26 Dose: 3 ml Ibuprofen (Advil) 800 mg PO NOW ONE Stop: 07/13/18 13:20 Last Admin: 07/13/18 13:32 Dose: 800 mg Oxycodone/Acetaminophen (Percocet 5/325) 1 tab PO NOW ONE Stop: 07/13/18 13:20 Last Admin: 07/13/18 13:32 Dose: 1 tab Vital Signs - 8 hr 07/13/18 13:28 07/13/18 14:44 Temperature 98.8 F Pulse Rate 89 97 H Respiratory Rate 16 17 Blood Pressure 119/61 Pulse Oximetry 98 98 <Rocky Mckenzie DO - Last Filed: 07/14/18 07:08> Orders Ordered: Discontinued Medications Albuterol (Ventolin) 2.5 mg INH NOW ONE Stop: 07/13/18 13:20 Last Admin: 07/13/18 13:26 Dose: 2.5 mg Albuterol/Ipratropium (Duoneb) 3 ml INH NOW ONE Stop: 07/13/18 13:20 Last Admin: 07/13/18 13:26 Dose: 3 ml Ibuprofen (Advil) 800 mg PO NOW ONE Stop: 07/13/18 13:20 Last Admin: 07/13/18 13:32 Dose: 800 mg Oxycodone/Acetaminophen (Percocet 5/325) 1 tab PO NOW ONE Stop: 07/13/18 13:20 Last Admin: 07/13/18 13:32 Dose: 1 tab Vital Signs - 8 hr 07/13/18 13:28 07/13/18 14:44 Temperature 98.8 F Pulse Rate 89 97 H Respiratory Rate 16 17 Blood Pressure 119/61 Pulse Oximetry 98 98 MDM - URI/Sore Throat <Taylor Walton PA-C - Last Filed: 07/13/18 21:14> Lab Data Lab Results 07/13/18 07/13/18 Range/Units 11:47 13:47 D-Dimer < 200 (<230) ng/mL Influenza A & B (PCR) Positive, type a A (Negative) Imaging Data Chest x-ray: Radiologist's impression: BACK Chest X-Ray (Signed) Romario Morales - 07/13/18 Launch Image View Report History [address] [address] XRay Report Signed Patient: Rosita Cooley MR#: [id number] : 1985 Acct:[id number] Age/Sex: 32 / F Date of Service: 07/13/18 Loc: ED Accession Number: [id number] Procedure: XR chest 2V Ordering Provider: Taylor Walton P.A-C PROCEDURE: XR CHEST 2V INDICATIONS: flu, SOB TECHNIQUE: 2 views of the chest were acquired. COMPARISON: None. FINDINGS: Surgical changes and devices: None. Lungs and pleura: No pleural effusions or pneumothorax. Lungs are clear. Mediastinum: Mediastinal contours are normal. Heart size is normal. Bones and chest wall: No suspicious bony abnormalities. Soft tissues appear unremarkable. IMPRESSION: Reduced inspiratory volume, no acute disease. Dictated by: Romario Morales M.D. on 07/13/2018 at 13:53 Approved by: Romario Morales M.D. on 07/13/2018 at 13:54 <Rocky Mckenzie DO - Last Filed: 07/14/18 07:08> Lab Data Lab Results 07/13/18 07/13/18 Range/Units 11:47 13:47 D-Dimer < 200 (<230) ng/mL Influenza A & B (PCR) Positive, type a A (Negative) Discharge Plan Departure Patient Disposition: Home Clinical Impression: Influenza Discharge Date/Time: 07/13/18 14:46 Interventions: ED Discharge Assessment Last Done: 07/13/18 14:44 Instructions: DI for Influenza -- Adult, DI for Reactive Airway Disease-Adult Activity Restrictions/Additional Instructions: Please return as we talked about if you have any acutely worsening symptoms. Otherwise, please rest at home, take the prescription strength ibuprofen every 8 hr to help with aches and fever. Take the prescription cough medicine as needed for sleep and cough (do not drive as it could make you sleepy). Also use your rescue inhaler for chest tightness and cough as often as needed. You should remain off of work until you do not have fever for at least 24 to 48 hr and until your cough is improved. Prescriptions: New ibuprofen 800 mg tablet 800 mg PO Q8H Qty: 20 RF: 0 codeine-guaifenesin 10-100 mg/5 mL liquid 5 ml PO Q4-6H PRN (Reason: cough) Qty: 120 RF: 0 No Action ondansetron 8 mg tablet,disintegrating 8 mg PO BID PRN (Reason: nausea and vomiting) Qty: 20 RF: 0 acyclovir 400 MG tablet 400 mg PO BID Qty: 60 RF: 5 albuterol sulfate [Ventolin HFA] 90 MCG/PUFF HFA aerosol inhaler 2 puff INH QIDP PRNQty: 1 RF: 0 norethindrone acetate [Aygestin] 5 mg tablet 5 mg PO BID Qty: 180 RF: 1 cyclobenzaprine 5 mg tablet 5 mg PO TID PRN (Reason: muscle spasm) Qty: 10 RF: 0 Referrals: Judith Lovell DO [Physician] - Stand Alone Forms: Work Release Note <Rocky Mckenzie DO - Last Filed: 07/14/18 07:08> [facility] ED Attending Felicia Attestation: I was available for consultation during this patient's emergency department encounter
--- NOTE | 2018-07-13 13:19 | DI.RAD.S_ITS ---
PROCEDURE: XR CHEST 2V INDICATIONS: flu, SOB TECHNIQUE: 2 views of the chest were acquired. COMPARISON: None. FINDINGS: Surgical changes and devices: None. Lungs and pleura: No pleural effusions or pneumothorax. Lungs are clear. Mediastinum: Mediastinal contours are normal. Heart size is normal. Bones and chest wall: No suspicious bony abnormalities. Soft tissues appear unremarkable. IMPRESSION: Reduced inspiratory volume, no acute disease. Dictated by: Romario Morales M.D. on 07/13/2018 at 13:53 Approved by: Romario Morales M.D. on 07/13/2018 at 13:54
[2018-07-13] MEDS: ALBUTEROL 2.5 MG/3 ML NEB (ADULT) INH (13:26)
[2018-07-13] MEDS: ALBUTEROL/IPRATROPIUM 3 ML AMPUL INH (13:26)
[2018-07-13 13:28] VITALS: PULSE 89; RESP 16; O2SAT 98
[2018-07-13] MEDS: OXYCODONE/ACETAMINOPHEN 5/325 TABLET 1 TAB PO (13:32)
[2018-07-13] MEDS: IBUPROFEN 400 MG TABLET 800 MG PO (13:32)
[2018-07-13 14:10] LABS: D Dimer < 200 ng/mL (<230)
[2018-07-13 14:44] VITALS: BP 119/61; PULSE 97; RESP 17; TEMP 37.1; O2SAT 98
== END 2018-07-13 14:46 | disposition home or self-care (01) ==
PROVIDERS: Emergency Medicine; Emergency Provider Internal Medicine
DX: J11.1 Influenza due to unidentified influenza virus with other respiratory manifestations (principal)
CPT/HCPCS: 36415; 71046; 85379; 87400; 94640; 99283; 99284; J7613

== ENCOUNTER → 2018-09-02 17:14 | Outpatient (CLI) | payer OTHER, SELFPAY ==
--- NOTE | 2018-09-02 17:17 | DI.MRI.S_ITS ---
PROCEDURE: MR ELBOW RT WO CON INDICATIONS: RIGHT ELBOW SPRAIN,PAIN. RIGHT HAND WEAKNESS AND NUMBNESS TECHNIQUE: Noncontrast coronal proton density fast spin echo and T2 fast spin echo with fat saturation, axial and sagittal T1 spin echo and T2 fast spin echo with fat saturation through the elbow. COMPARISON: None. FINDINGS: Image quality: Excellent. Lateral structures: The lateral ulnar collateral ligament and radial collateral ligament both appear mildly thickened suggestive of ligament sprain. The overlying common extensor tendon appears thickened with heterogeneous internal fluid signal suggestive of tendinosis and low-grade intrasubstance partial thickness tear. Medial structures: The ulnar collateral ligament appears intact. The overlying common flexor tendon appears normal. The ulnar nerve appears normal in size and signal within the cubital tunnel. Anterior structures: The biceps and brachialis tendons both appear intact as they insert onto the proximal radius and ulna, respectively. No bicipitoradial bursal fluid. The median and radial neurovascular bundles appear normal; no focal muscle atrophy to suggest nerve impingement. Posterior structures: The conjoint triceps tendon from the long and lateral heads appears intact. The medial head of the triceps tendon also appears normal, with direct muscle insertion onto the olecranon. No olecranon bursal fluid. Bone and cartilage: No bone marrow contusions or fractures. No osteochondral injuries. IMPRESSION: 1. Tendinosis and low-grade intrasubstance partial-thickness tear involving common extensor tendon origin with low-grade sprain of lateral collateral ligaments of the elbow joint suggestive of lateral epicondylitis. 2. Medial elbow ligaments and tendons are intact. Biceps and triceps tendons are intact. 3. No marrow edema. No fracture or dislocation. No significant joint effusion. Dictated by: Pascual Fuentes M.D. on 09/03/2018 at 8:09 Approved by: Pascual Fuentes M.D. on 09/03/2018 at 8:14
== END ==
PROVIDERS: Visit Provider Physical Medicine & Rehabilitation
DX: S56.511A Strain of other extensor muscle, fascia and tendon at forearm level, right arm, initial encounter (principal); M25.521 Pain in right elbow; R20.0 Anesthesia of skin
CPT/HCPCS: 73221

== ENCOUNTER 2018-09-24 12:40 | Emergency (ER) | payer OTHER, MEDICAID, SELFPAY ==
[2018-09-24 12:44] VITALS: BP 129/83; PULSE 73; RESP 18; TEMP 36.6; O2SAT 97
--- NOTE | 2018-09-24 15:23 | PC.NURSE ---
pt reports, hx of seizure since 2009, last seizure 2017, CT show spot on the brain and will monitor, last ct in [place] at [facility]. pt reports, woke up 930am, incontinent of urine, jaw tightness and sore. generalized ache, frontal headache, reporting vomiting continuesly for 10 minutes since 930am. denies diarrhea, pt states, smoker , she always hacks up and with coughing. pt not on any antiseizure meds. trying to get , she stopped taking control pills 2 weeks ago. hx of chronic migraine, developed frontal headache while waiting in ER. described as mallet bangingdenies fever. usually takes ibuprofen , naprosyn.
--- NOTE | 2018-09-24 16:45 | ED.SEIZURE ---
HPI - Seizure General Chief Complaint: Seizure Stated Complaint: HAD SEIZURE THIS MORNING WANTS TO MAKE SURE OK Time Seen by Provider: 09/24/18 16:12 Source: patient Mode of arrival: ambulatory Limitations: no limitations History of Present Illness HPI Narrative: Patient is a 32-year-old female who presents with his seizure. She has a history of seizures he. She says she woke up with a seizure today is her 1st seizure since 2017. She know she had a seizure because she was incontinent and her jaw felt tight and she bit the inside of her cheek. She also has a seizure dog was on her back looking her face. She says her seizures were triggered by stress and hormones. She was never on any anti seizure medication although reviewing records it looks like she is on topiramate. She has not had a neurologist in awnele. Seizures have been controlled. She says that her stress has gotten worse many people in her family or dying she has 2 jobs. She does not eat regularly. He has not had any alcohol in over a week alcohol does not seem to trigger her seizures. She is trying to get and recently stopped control 2 weeks ago. She overall has body aches and headache. MD complaint: seizure Place: home Related Data Previous Rx's Medication Instructions Recorded acyclovir 400 mg PO BID #60 tab 09/04/17 albuterol sulfate [Ventolin HFA] 2 puff INH QIDP PRN #1 ea 10/03/17 norethindrone acetate 5 mg tablet 5 mg PO BID #180 tab 03/19/18 cyclobenzaprine 5 mg PO TID PRN #10 tab 07/06/18 ondansetron 8 mg disintegrating 8 mg PO BID PRN #20 tab 07/12/18 tablet codeine-guaifenesin 5 ml PO Q4-6H PRN #120 ml 07/13/18 ibuprofen 800 mg PO Q8H #20 tab 07/13/18 Allergies Allergy/AdvReac Type Severity Reaction Status Date / Time citalopram Allergy Mild DEHYDRATED, Verified 07/12/18 13:29 N/V, MIGRAINES loratadine [From CLARITIN] Allergy Unknown Vomiting Verified 07/12/18 13:29 milk Allergy Unknown Verified 07/12/18 13:29 shellfish derived Allergy Unknown Anaphylaxis Verified 07/12/18 13:29 sumatriptan [From IMITREX] Allergy Unknown Vomiting Verified 07/12/18 13:29 Review of Systems Review of Systems GENERAL: Denies chills, fatigue, malaise, fever, sweats, travel HEENT: Denies sinus pain, ear pain, sore throat, difficulty swallowing, neck pain RESPIRATORY: Denies dyspnea, cough, wheezing, hemoptysis, sputum. CARDIOVASCULAR: Denies chest pain, palpitations, orthopnea, edema GASTROINTESTINAL: Denies nausea, vomiting, abdominal pain, diarrhea, constipation, melena. : Denies dysuria, frequency, incontinence, hematuria, urinary retention, flank pain. MUSCULOSKELETAL: Denies weakness, joint pain, or bony pain SKIN: No rash, no erythema, no pruritus NEUROLOGIC: See HPI PSYCHIATRIC: No concerning psychosocial issues. 12 point review of systems is negative except for those stated above and HPI [facility] Medical History Ankle pain (Chronic Unknown) Anxiety (Chronic Unknown) Carpal tunnel syndrome (Chronic Unknown) Chlamydia (Chronic Unknown) Chronic back pain (Chronic Unknown) Depression (Chronic Unknown) Eczema (Chronic Unknown) Foot pain (Chronic Unknown) Generalized headaches (Chronic Unknown) Herpes (Chronic Unknown) Human papilloma virus (Chronic Unknown) Irregular menses (Chronic Unknown) Migraines (Chronic Unknown) Ovarian cyst (Chronic Unknown) PCOS (polycystic ovarian syndrome) (Chronic) PTSD (post-traumatic stress disorder) (Chronic Unknown) Seizures (Chronic Unknown) Abnormal Pap smear of cervix (Resolved Unknown) Fractures (Resolved Unknown) History of suicide attempt (Resolved) Kidney stones (Resolved Unknown) PID (pelvic inflammatory disease) (Resolved Unknown) Shoulder pain (Resolved Unknown) Social History Smoking Status: Former smoker alcohol intake: current substance use type: marijuana Exam Initial Vital Signs Initial Vital Signs: Vital Signs Temperature 97.8 F 09/24/18 12:44 Pulse Rate 73 09/24/18 12:44 Respiratory Rate 18 09/24/18 12:44 Blood Pressure 129/83 09/24/18 12:44 Pulse Oximetry 97 09/24/18 12:44 GENERAL: Well-appearing, well-nourished and in no acute distress. HEENT: Head atraumatic,EOMI, pupils reactive, face symmetric, moist mucous membrane CARDIOVASCULAR: Regular rate and rhythm without murmurs, rubs or gallops. RESPIRATORY: Breath sounds equal bilaterally, no wheezes rales or rhonchi. ABDOMEN: Soft, nontender. Normoactive bowel sounds all 4 quadrants. No guarding or rebound. EXTREMITIES: Normal range of motion, no clubbing or edema. Neurovascularly intact NEUROLOGICAL: Alert and oriented x4.Normal gait and speech. Cranial nerves II through XII grossly intact. Good [id number]-nw-puor, good [id number], strength equal bilaterally, no dysarthria or aphasia, sensation in tact to soft touch bilaterally, no visual changes, no facial droop SKIN: Warm, dry, no laceration, no petechiae, no rashes or lesions. Course Orders Ordered: ED Orders 09/24/18 16:53 Basic Metabolic Panel Stat Complete Blood Count AUTO DIFF Stat 09/24/18 17:17 EKG-12 Lead Routine Discontinued Medications Sodium Chloride (Normal Saline 0.9%) 1,000 mls @ 1,000 mls/hr IV BOLUS ONE Stop: 09/24/18 17:41 Last Infusion: 09/24/18 18:23 Dose: 0 mls/hr Admin: 09/24/18 17:15 Dose: 1,000 mls/hr Ketorolac Tromethamine (Toradol) 30 mg IV NOW ONE Stop: 09/24/18 16:43 Last Admin: 09/24/18 17:15 Dose: 30 mg Vital Signs - 8 hr 09/24/18 12:44 09/24/18 17:16 09/24/18 17:49 Temperature 97.8 F Pulse Rate 73 46 L 58 L Respiratory Rate 18 18 16 Blood Pressure 129/83 Blood Pressure [Left Arm] 151/95 H 127/77 Pulse Oximetry 97 97 99 09/24/18 18:00 Temperature Pulse Rate 53 L Respiratory Rate 16 Blood Pressure Blood Pressure [Left Arm] 139/76 Pulse Oximetry 99 MDM - Seizure Lab Data Attestation: I reviewed the patient's lab results. Result diagrams: 09/24/18 16:53 09/24/18 16:53 Lab Results 09/24/18 09/24/18 Range/Units 16:53 16:53 WBC 9.0 (4.5-11.0) X10^3/uL RBC 5.06 (4.0-5.2) X10^6/uL Hgb 14.4 (12.0-16.0) g/dL Hct 43.5 (36-46) % MCV 85.9 (80-100) fL MCH 28.5 (26-34) PG MCHC 33.2 (30-36) % RDW 14.4 (11.6-14.8) % Plt Count 307 (150-400) X10^3/uL Neut % (Auto) 60.7 (50-75) % Lymph % (Auto) 32.1 (25-40) % [place] % (Auto) 5.4 (3-14) % Eos % (Auto) 0.9 L (2-4) % Baso % (Auto) 0.9 (0-2) % Neut # (Auto) 5500 (8204-4819) /uL Lymph # (Auto) 2900 (1888-0511) /uL [place] # (Auto) 500 (0-900) /uL Eos # (Auto) 100 (0-450) /uL Baso # (Auto) 100 (0-100) /uL Sodium 140 (137-145) mmol/L Potassium 4.0 (3.4-5.1) mmol/L Chloride 106 (98-107) mmol/L Carbon Dioxide 24 (22-32) mmol/L BUN 10 (7-17) mg/dL Creatinine 0.70 (0.52-1.04) mg/dL Estimated GFR > 60.0 (>60) mL/min BUN/Creatinine Ratio 14.3 (6-22) Glucose 85 (70-100) mg/dL Calcium 8.9 (8.4-10.2) mg/dL Point of Care Testing Glucose POC 74 MDM Narrative Medical decision making narrative: Patient is overall feeling much better with IV fluids. She feels ready and able to go home. Recommended that she see a neurologist. Discharge Plan Departure Patient Disposition: Home Clinical Impression: Seizure Discharge Date/Time: 09/24/18 18:25 Interventions: ED Discharge Assessment Last Done: 09/24/18 18:23 Instructions: DI for Seizure Disorder -- Adult Activity Restrictions/Additional Instructions: *You have been diagnosed with seizure *What to do: Recommend seeing neurologist. At this time difficult to tell what caused this particular seizure. Recommend avoiding alcohol, eating and sleeping regularly *Continue to take medications as directed *Follow up with your primary care provider in 2-3 days *Return to ER if you should have recurrent seizure or any new, worsening or concerning symptoms Prescriptions: No Action ondansetron 8 mg tablet,disintegrating 8 mg PO BID PRN (Reason: nausea and vomiting) Qty: 20 RF: 0 acyclovir 400 MG tablet 400 mg PO BID Qty: 60 RF: 5 albuterol sulfate [Ventolin HFA] 90 MCG/PUFF HFA aerosol inhaler 2 puff INH QIDP PRNQty: 1 RF: 0 norethindrone acetate [Aygestin] 5 mg tablet 5 mg PO BID Qty: 180 RF: 1 cyclobenzaprine 5 mg tablet 5 mg PO TID PRN (Reason: muscle spasm) Qty: 10 RF: 0 ibuprofen 800 mg tablet 800 mg PO Q8H Qty: 20 RF: 0 codeine-guaifenesin 10-100 mg/5 mL liquid 5 ml PO Q4-6H PRN (Reason: cough) Qty: 120 RF: 0 Referrals: Aristides Fu MD [Non-Staff] - Stand Alone Forms: Work Release Note
--- NOTE | 2018-09-24 16:48 | ED_ITS ---
HPI - Seizure General Chief Complaint: Seizure Stated Complaint: HAD SEIZURE THIS MORNING WANTS TO MAKE SURE OK Time Seen by Provider: 09/24/18 16:12 Source: patient Mode of arrival: ambulatory Limitations: no limitations History of Present Illness HPI Narrative: Patient is a 32-year-old female who presents with his seizure. She has a history of seizures he. She says she woke up with a seizure today is her 1st seizure since 2017. She know she had a seizure because she was incontinent and her jaw felt tight and she bit the inside of her cheek. She also has a seizure dog was on her back looking her face. She says her seizures were triggered by stress and hormones. She was never on any anti seizure medica tion although reviewing records it looks like she is on topiramate. She has not had a neurologist in [place]. Seizures have been controlled. She says that her stress has gotten worse many people in her family or dying she has 2 jobs. She does not eat regularly. He has not had any alcohol in over a week alcohol does not seem to trigger her seizures. She is trying to get and recently s topped control 2 weeks ago. She overall has body aches and headache. MD complaint: seizure Place: home Related Data Previous Rx's Medication Instructions Recorded acyclovir 400 mg PO BID #60 tab 09/04/17 albuterol sulfate [Ventolin HFA] 2 puff INH QIDP PRN #1 ea 10/03/17 norethindrone acetate 5 mg tablet 5 mg PO BID #180 tab 03/19/18 cyclobenzaprine 5 mg PO TID PRN #10 tab 07/06/18 ondansetron 8 mg disintegrating 8 mg PO BID PRN #20 tab 07/12/18 tablet codeine-guaifenesin 5 ml PO Q4-6H PRN #120 ml 07/13/18 ibuprofen 800 mg PO Q8H #20 tab 07/13/18 Allergies Allergy/AdvReac Type Severity Reaction Status Date / Time citalopram Allergy Mild DEHYDRATED, Verified 07/12/18 13:29 N/V, MIGRAINES loratadine [From CLARITIN] Allergy Unknown Vomiting Verified 07/12/18 13:29 milk Allergy Unknown Verified 07/12/18 13:29 shellfish derived Allergy Unknown Anaphylaxis Verified 07/12/18 13:29 sumatriptan [From IMITREX] Allergy Unknown Vomiting Verified 07/12/18 13:29 Review of Systems Review of Systems GENERAL: Denies chills, fatigue, malaise, fever, sweats, travel HEENT: Denies sinus pain, ear pain, sore throat, difficulty swallowing, neck pain RESPIRATORY: Denies dyspnea, cough, wheezing, hemoptysis, sputum. CARDIOVASCULAR: Denies chest pain, palpitations, orthopnea, edema GASTROINTESTINAL: Denies nausea, vomiting, abdominal pain, diarrhea, constipation, melena. : Denies dysuria, frequency, incontinence, hematuria, urinary retention, flank pain. MUSCULOSKELETAL: Denies weakness, joint pain, or bony pain SKIN: No rash, no erythema, no pruritus NEUROLOGIC: See HPI PSYCHIATRIC: No concerning psychosocial issues. 12 point review of systems is negative except for those stated above and HPI [facility] Medical History Ankle pain (Chronic Unknown) Anxiety (Chronic Unknown) Carpal tunnel syndrome (Chronic Unknown) Chlamydia (Chronic Unknown) Chronic back pain (Chronic Unknown) Depression (Chronic Unknown) Eczema (Chronic Unknown) Foot pain (Chronic Unknown) Generalized headaches (Chronic Unknown) Herpes (Chronic Unknown) Human papilloma virus (Chronic Unknown) Irregular menses (Chronic Unknown) Migraines (Chronic Unknown) Ovarian cyst (Chronic Unknown) PCOS (polycystic ovarian syndrome) (Chronic) PTSD (post-traumatic stress disorder) (Chronic Unknown) Seizures (Chronic Unknown) Abnormal Pap smear of cervix (Resolved Unknown) Fractures (Resolved Unknown) History of suicide attempt (Resolved) Kidney stones (Resolved Unknown) PID (pelvic inflammatory disease) (Resolved Unknown) Shoulder pain (Resolved Unknown) Social History Smoking Status: Former smoker alcohol intake: current substance use type: marijuana Exam Initial Vital Signs Initial Vital Signs: Vital Signs Temperature 97.8 F 09/24/18 12:44 Pulse Rate 73 09/24/18 12:44 Respiratory Rate 18 09/24/18 12:44 Blood Pressure 129/83 09/24/18 12:44 Pulse Oximetry 97 09/24/18 12:44 GENERAL: Well-appearing, well-nourished and in no acute distress. HEENT: Head atraumatic,EOMI, pupils reactive, face symmetric, moist mucous membrane CARDIOVASCULAR: Regular rate and rhythm without murmurs, rubs or gallops. RESPIRATORY: Breath sounds equal bilaterally, no wheezes rales or rhonchi. ABDOMEN: Soft, nontender. Normoactive bowel sounds all 4 quadrants. No guarding or rebound. EXTREMITIES: Normal range of motion, no clubbing or edema. Neurovascularly intact NEUROLOGICAL: Alert and oriented x4.Normal gait and speech. Cranial nerves II through XII grossly intact. Good [id number], good [id number], strength equal bilaterally, no dysarthria or aphasia, sensation in tact to soft touch bilaterally, no visual changes, no facial droop SKIN: Warm, dry, no laceration, no petechiae, no rashes or lesions. Course Orders Ordered: ED Orders 09/24/18 16:53 Basic Metabolic Panel Stat Complete Blood Count AUTO DIFF Stat 09/24/18 17:17 EKG-12 Lead Routine Discontinued Medications Sodium Chloride (Normal Saline 0.9%) 1,000 mls @ 1,000 mls/hr IV BOLUS ONE Stop: 09/24/18 17:41 Last Infusion: 09/24/18 18:23 Dose: 0 mls/hr Admin: 09/24/18 17:15 Dose: 1,000 mls/hr Ketorolac Tromethamine (Toradol) 30 mg IV NOW ONE Stop: 09/24/18 16:43 Last Admin: 09/24/18 17:15 Dose: 30 mg Vital Signs - 8 hr 09/24/18 12:44 09/24/18 17:16 09/24/18 17:49 Temperature 97.8 F Pulse Rate 73 46 L 58 L Respiratory Rate 18 18 16 Blood Pressure 129/83 Blood Pressure [Left Arm] 151/95 H 127/77 Pulse Oximetry 97 97 99 09/24/18 18:00 Temperature Pulse Rate 53 L Respiratory Rate 16 Blood Pressure Blood Pressure [Left Arm] 139/76 Pulse Oximetry 99 MDM - Seizure Lab Data Attestation: I reviewed the patient's lab results. Result diagrams: 09/24/18 16:53 09/24/18 16:53 Lab Results 09/24/18 09/24/18 Range/Units 16:53 16:53 WBC 9.0 (4.5-11.0) X10^3/uL RBC 5.06 (4.0-5.2) X10^6/uL Hgb 14.4 (12.0-16.0) g/dL Hct 43.5 (36-46) % MCV 85.9 (80-100) fL MCH 28.5 (26-34) PG MCHC 33.2 (30-36) % RDW 14.4 (11.6-14.8) % Plt Count 307 (150-400) X10^3/uL Neut % (Auto) 60.7 (50-75) % Lymph % (Auto) 32.1 (25-40) % [place] % (Auto) 5.4 (3-14) % Eos % (Auto) 0.9 L (2-4) % Baso % (Auto) 0.9 (0-2) % Neut # (Auto) 5500 (5214-8518) /uL Lymph # (Auto) 2900 (1377-4665) /uL [place] # (Auto) 500 (0-900) /uL Eos # (Auto) 100 (0-450) /uL Baso # (Auto) 100 (0-100) /uL Sodium 140 (137-145) mmol/L Potassium 4.0 (3.4-5.1) mmol/L Chloride 106 (98-107) mmol/L Carbon Dioxide 24 (22-32) mmol/L BUN 10 (7-17) mg/dL Creatinine 0.70 (0.52-1.04) mg/dL Estimated GFR > 60.0 (>60) mL/min BUN/Creatinine Ratio 14.3 (6-22) Glucose 85 (70-100) mg/dL Calcium 8.9 (8.4-10.2) mg/dL Point of Care Testing Glucose POC 74 MDM Narrative Medical decision making narrative: Patient is overall feeling much better with IV fluids. She feels ready and able to go home. Recommended that she see a neurologist. Discharge Plan Departure Patient Disposition: Home Clinical Impression: Seizure Discharge Date/Time: 09/24/18 18:25 Interventions: ED Discharge Assessment Last Done: 09/24/18 18:23 Instructions: DI for Seizure Disorder -- Adult Activity Restrictions/Additional Instructions: *You have been diagnosed with seizure *What to do: Recommend seeing neurologist. At this time difficult to tell what caused this particular seizure. Recommend avoiding alcohol, eating and sleeping regularly *Continue to take medications as directed *Follow up with your primary care provider in 2-3 days *Return to ER if you should have recurrent seizure or any new, worsening or concerning symptoms Prescriptions: No Action ondansetron 8 mg tablet,disintegrating 8 mg PO BID PRN (Reason: nausea and vomiting) Qty: 20 RF: 0 acyclovir 400 MG tablet 400 mg PO BID Qty: 60 RF: 5 albuterol sulfate [Ventolin HFA] 90 MCG/PUFF HFA aerosol inhaler 2 puff INH QIDP PRNQty: 1 RF: 0 norethindrone acetate [Aygestin] 5 mg tablet 5 mg PO BID Qty: 180 RF: 1 cyclobenzaprine 5 mg tablet 5 mg PO TID PRN (Reason: muscle spasm) Qty: 10 RF: 0 ibuprofen 800 mg tablet 800 mg PO Q8H Qty: 20 RF: 0 codeine-guaifenesin 10-100 mg/5 mL liquid 5 ml PO Q4-6H PRN (Reason: cough) Qty: 120 RF: 0 Referrals: Aristides Fu MD [Non-Staff] - Stand Alone Forms: Work Release Note
[2018-09-24] MEDS: KETOROLAC 60 MG/2 ML VIAL 30 MG IV (17:15)
[2018-09-24] MEDS: SODIUM CHLORIDE 0.9% 1,000 ML 1000 ML IV (17:15)
[2018-09-24 17:16] VITALS: BP 151/95; PULSE 46; RESP 18; O2SAT 97
[2018-09-24 17:20] LABS: Add Manual Diff / Slide Review NO; Basophils Absolute Auto 100 /uL (0-100); Basophils Percent Auto 0.9 % (0-2); Eosinophils Absolute Auto 100 /uL (0-450); Eosinophils Percent Auto 0.9 % (2-4); Hematocrit 43.5 % (36-46); Hemoglobin 14.4 g/dL (12.0-16.0); Lymphocytes Absolute Auto 2900 /uL (1100-4500); Lymphocytes Percent Auto 32.1 % (25-40); Mean Corpuscular HGB Conc 33.2 % (30-36); Mean Corpuscular Hemoglobin 28.5 PG (26-34); Mean Corpuscular Volume 85.9 fL (80-100); Monocytes Absolute Auto 500 /uL (0-900); Monocytes Percent Auto 5.4 % (3-14); Neutrophils Absolute Auto 5500 /uL (1500-7000); Neutrophils Percent Auto 60.7 % (50-75); Platelet Count 307 X10^3/uL (150-400); Red Blood Cell Count 5.06 X10^6/uL (4.0-5.2); Red Cell Distribution Width 14.4 % (11.6-14.8)
[2018-09-24 17:34] LABS: BUN Creatinine Ratio 14.3 (6-22); Blood Urea Nitrogen 10 mg/dL (7-17); Calcium 8.9 mg/dL (8.4-10.2); Carbon Dioxide 24 mmol/L (22-32); Chloride 106 mmol/L (98-107); Estimated Glomerular Filt Rate > 60.0 mL/min (>60); Glucose 85 mg/dL (70-100); HEMOLYSIS < 15 (0-50); Sodium 140 mmol/L (137-145)
[2018-09-24 17:49] VITALS: BP 127/77; PULSE 58; RESP 16; O2SAT 99
[2018-09-24 18:00] VITALS: BP 139/76; PULSE 53; RESP 16; O2SAT 99
--- NOTE | 2018-09-24 18:24 | PC.NURSE ---
requesting work note for significant other. dr stone aware.
== END 2018-09-24 18:25 | disposition home or self-care (01) ==
PROVIDERS: Emergency Provider Emergency Medicine
DX: R56.9 Unspecified convulsions (principal)
CPT/HCPCS: 36591; 80048; 82962; 85025; 93005; 96361; 96374; 99283; 99284; 99291; J1885

== ENCOUNTER 2018-11-23 17:45 | Emergency (ER) | payer OTHER, MEDICAID, SELFPAY ==
[2018-11-23 18:01] VITALS: BP 115/78; PULSE 60; RESP 18; TEMP 36.1; O2SAT 95; BMI 42.1
[2018-11-23 19:20] LABS: RBC Urine None Seen (0-5/HPF)
[2018-11-23 19:35] LABS: Bacteria Urine Few (2-10); Culture Indicated Urine Specimen Cultured; WBC Urine 0-1/HPF (0-5/HPF)
[2018-11-23 20:01] LABS: Add Manual Diff / Slide Review NO; Basophils Absolute Auto 0 /uL (0-100); Basophils Percent Auto 0.5 % (0-2); Eosinophils Absolute Auto 200 /uL (0-450); Eosinophils Percent Auto 2.3 % (2-4); Hematocrit 45.3 % (36-46); Hemoglobin 14.8 g/dL (12.0-16.0); Lymphocytes Absolute Auto 3200 /uL (1100-4500); Lymphocytes Percent Auto 34.3 % (25-40); Mean Corpuscular HGB Conc 32.6 % (30-36); Mean Corpuscular Hemoglobin 28.4 PG (26-34); Mean Corpuscular Volume 87.2 fL (80-100); Monocytes Absolute Auto 600 /uL (0-900); Monocytes Percent Auto 6.4 % (3-14); Neutrophils Absolute Auto 5200 /uL (1500-7000); Neutrophils Percent Auto 56.5 % (50-75); Platelet Count 305 X10^3/uL (150-400); Red Blood Cell Count 5.19 X10^6/uL (4.0-5.2); Red Cell Distribution Width 14.1 % (11.6-14.8); White Blood Cell Count 9.2 X10^3/uL (4.5-11.0)
[2018-11-23 20:06] LABS: Alanine Aminotransferase 20 IU/L (9-52); Albumin 4.4 g/dL (3.5-5.0); Albumin Globulin Ratio 1.3 (1.0-2.8); Alkaline Phosphatase 49 U/L (38-126); Aspartate Aminotransferase 25 IU/L (14-36); Bilirubin Total 0.8 mg/dL (0.2-1.3); Blood Urea Nitrogen 8 mg/dL (7-17); Calcium 9.6 mg/dL (8.4-10.2); Carbon Dioxide 25 mmol/L (22-32); Chloride 105 mmol/L (98-107); Estimated Glomerular Filt Rate > 60.0 mL/min (>60); Globulin 3.4 g/dL (1.7-4.1); Glucose 77 mg/dL (70-100); HEMOLYSIS 43 (0-50); Lipase 76 U/L (23-300); Potassium 4.2 mmol/L (3.4-5.1); Sodium 141 mmol/L (137-145); Total Protein 7.8 g/dL (6.3-8.2)
--- NOTE | 2018-11-23 20:07 | ED_ITS ---
HPI - Abdominal Pain General Chief Complaint: Abdominal Pain Stated Complaint: severe bloating and cramping x4 days Time Seen by Provider: 11/23/18 20:07 Source: patient Mode of arrival: ambulatory Limitations: no limitations History of Present Illness HPI narrative: Patient is a 33-year-old female here for evaluation of 4 days of bilateral lower abdomen bloating and cramping. She has no urinary symptoms. Does not have regular menstrual cycles. She is currently on control however several weeks ago she came off of her control to try to get however had a seizure afterwards in [place] started back on her control. She states that the control she is on doubles is both a seizure medication and also prevention. She does have a history of PCOS which is another reason why she is on this medication. She states ?all of the females in my family have negative test despite being actually being ?. She states that she has had a miscarriage in the past and feels somewhat like that. Related Data Previous Rx's Medication Instructions Recorded albuterol sulfate [Ventolin HFA] 2 puff INH QIDP PRN #1 ea 10/03/17 norethindrone acetate 5 mg tablet 5 mg PO BID #180 tab 03/19/18 ondansetron 8 mg disintegrating 8 mg PO BID PRN #20 tab 07/12/18 tablet ibuprofen 800 mg PO Q8H #20 tab 07/13/18 fluconazole 150 mg tablet 150 mg PO ONCE #2 tab 10/28/18 guaifenesin 200 mg tablet 200 mg PO Q4H PRN #20 tab 10/28/18 pseudoephedrine 60 mg tablet 30 mg PO Q4-6H PRN #20 tab 10/28/18 acyclovir 400 mg tablet 400 mg PO BID #60 tab 11/06/18 Allergies Allergy/AdvReac Type Severity Reaction Status Date / Time citalopram Allergy Mild DEHYDRATED, Verified 11/23/18 18:01 N/V, MIGRAINES loratadine [From CLARITIN] Allergy Unknown Vomiting Verified 11/23/18 18:01 milk Allergy Unknown Verified 11/23/18 18:01 shellfish derived Allergy Unknown Anaphylaxis Verified 11/23/18 18:01 sumatriptan [From IMITREX] Allergy Unknown Vomiting Verified 11/23/18 18:01 Review of Systems Constitutional Denies fever(s) and Denies headache(s) ENT Ears, Nose, Mouth, and Throat: Denies headache(s) Cardiovascular Denies chest pain and Denies dyspnea Respiratory Denies dyspnea Gastrointestinal Gastrointestinal: Reports abdominal pain, Denies change in stool character, Reports cramping, Denies nausea and Denies vomiting Genitourinary Denies dysuria and Denies vaginal discharge Musculoskeletal Denies myalgias Integumentary/Breasts Denies rash Neurologic Denies behavioral changes and Denies headache(s) Psychiatric Denies behavioral changes Hematologic/Lymphatic Denies easy bleeding and Denies easy bruising [facility] Medical History Ankle pain (Chronic Unknown) Anxiety (Chronic Unknown) Carpal tunnel syndrome (Chronic Unknown) Chlamydia (Chronic Unknown) Chronic back pain (Chronic Unknown) Depression (Chronic Unknown) Eczema (Chronic Unknown) Foot pain (Chronic Unknown) Generalized headaches (Chronic Unknown) Herpes (Chronic Unknown) Human papilloma virus (Chronic Unknown) Irregular menses (Chronic Unknown) Migraines (Chronic Unknown) Ovarian cyst (Chronic Unknown) PCOS (polycystic ovarian syndrome) (Chronic) PTSD (post-traumatic stress disorder) (Chronic Unknown) Seizures (Chronic Unknown) Abnormal Pap smear of cervix (Resolved Unknown) Fractures (Resolved Unknown) History of suicide attempt (Resolved) Kidney stones (Resolved Unknown) PID (pelvic inflammatory disease) (Resolved Unknown) Shoulder pain (Resolved Unknown) Social History Smoking Status: Former smoker alcohol intake: current substance use type: marijuana Exam Initial Vital Signs Initial Vital Signs: Vital Signs Temperature 97.0 F L 11/23/18 18:01 Pulse Rate 60 11/23/18 18:01 Respiratory Rate 18 11/23/18 18:01 Blood Pressure 115/78 11/23/18 18:01 Pulse Oximetry 95 11/23/18 18:01 Const General: cooperative, comfortable, well developed, well groomed and No acute distress Orientation: alert, awake and oriented x3 Resp Effort & Inspection: normal respiratory effort Cardio Rate: regular rate GI Inspection: non-distended Palpation: soft, No firm and No tender Back/Spine/Pelvis Back: No CVA tenderness Skin Lesions: no lesions Rashes: no rashes Neuro General: alert, awake and oriented x3 Cognition: normal cognition Speech: speech normal Extrem General: normal to inspection and capillary refill normal Psych Appearance: grossly normal and well kempt Mood: congruent mood Affect: normal affect Course Orders Ordered: ED Orders 11/23/18 18:50 Urine Culture Stat Urine Microscopic Stat 11/23/18 19:45 Complete Blood Count AUTO DIFF Stat Comprehensive Metabolic Panel Stat Lipase Stat 11/23/18 20:31 Test Serum,Qual Stat Vital Signs - 8 hr 11/23/18 20:10 11/23/18 21:19 Pulse Rate 57 L 62 Respiratory Rate 17 16 Blood Pressure [Left Arm] 119/67 130/87 Pulse Oximetry 97 99 MDM - Abdominal Pain Lab Data Attestation: I reviewed the patient's lab results. Result diagrams: 11/23/18 19:45 11/23/18 19:45 Lab Results 11/23/18 11/23/18 11/23/18 Range/Units 18:50 19:45 19:45 WBC 9.2 (4.5-11.0) X10^3/uL RBC 5.19 (4.0-5.2) X10^6/uL Hgb 14.8 (12.0-16.0) g/dL Hct 45.3 (36-46) % MCV 87.2 (80-100) fL MCH 28.4 (26-34) PG MCHC 32.6 (30-36) % RDW 14.1 (11.6-14.8) % Plt Count 305 (150-400) X10^3/uL Neut % (Auto) 56.5 (50-75) % Lymph % (Auto) 34.3 (25-40) % [place] % (Auto) 6.4 (3-14) % Eos % (Auto) 2.3 (2-4) % Baso % (Auto) 0.5 (0-2) % Neut # (Auto) 5200 (2388-3586) /uL Lymph # (Auto) 3200 (3192-0048) /uL [place] # (Auto) 600 (0-900) /uL Eos # (Auto) 200 (0-450) /uL Baso # (Auto) 0 (0-100) /uL Sodium 141 (137-145) mmol/L Potassium 4.2 (3.4-5.1) mmol/L Chloride 105 (98-107) mmol/L Carbon Dioxide 25 (22-32) mmol/L BUN 8 (7-17) mg/dL Creatinine 0.80 (0.52-1.04) mg/dL Estimated GFR > 60.0 (>60) mL/min BUN/Creatinine Ratio 10.0 (6-22) Glucose 77 (70-100) mg/dL Calcium 9.6 (8.4-10.2) mg/dL Total Bilirubin 0.8 (0.2-1.3) mg/dL AST 25 (14-36) IU/L ALT 20 (9-52) IU/L Alkaline Phosphatase 49 (38-126) U/L Total Protein 7.8 (6.3-8.2) g/dL Albumin 4.4 (3.5-5.0) g/dL Globulin 3.4 (1.7-4.1) g/dL Albumin/Globulin Ratio 1.3 (1.0-2.8) Lipase 76 (23-300) U/L Serum , Qual (Negative) Urine RBC None seen (0-5/HPF) Urine WBC 0-1/hpf (0-5/HPF) Urine Bacteria Few (2-10) H (None) Ur Culture Indicated? Specimen cultured 11/23/18 Range/Units 20:31 WBC (4.5-11.0) X10^3/uL RBC (4.0-5.2) X10^6/uL Hgb (12.0-16.0) g/dL Hct (36-46) % MCV (80-100) fL MCH (26-34) PG MCHC (30-36) % RDW (11.6-14.8) % Plt Count (150-400) X10^3/uL Neut % (Auto) (50-75) % Lymph % (Auto) (25-40) % [place] % (Auto) (3-14) % Eos % (Auto) (2-4) % Baso % (Auto) (0-2) % Neut # (Auto) (9475-6428) /uL Lymph # (Auto) (3753-9352) /uL [place] # (Auto) (0-900) /uL Eos # (Auto) (0-450) /uL Baso # (Auto) (0-100) /uL Sodium (137-145) mmol/L Potassium (3.4-5.1) mmol/L Chloride (98-107) mmol/L Carbon Dioxide (22-32) mmol/L BUN (7-17) mg/dL Creatinine (0.52-1.04) mg/dL Estimated GFR (>60) mL/min BUN/Creatinine Ratio (6-22) Glucose (70-100) mg/dL Calcium (8.4-10.2) mg/dL Total Bilirubin (0.2-1.3) mg/dL AST (14-36) IU/L ALT (9-52) IU/L Alkaline Phosphatase (38-126) U/L Total Protein (6.3-8.2) g/dL Albumin (3.5-5.0) g/dL Globulin (1.7-4.1) g/dL Albumin/Globulin Ratio (1.0-2.8) Lipase (23-300) U/L Serum , Qual Negative (Negative) Urine RBC (0-5/HPF) Urine WBC (0-5/HPF) Urine Bacteria (None) Ur Culture Indicated? Point of care testing: Point of Care Testing Test Results Negative Urine Dip Bedside Urine Glucose Negative Bedside Urine Bilirubin - Negative Bedside Urine Ketone - Negative Urine Specific [place] 1.010 Bedside Urine Occult Blood - Negative Bedside Urine pH 6.5 Bedside Urine Protein - Negative Bedside Urine Urobilinogen - Negative Bedside Urine Nitrite - Negative Bedside Urine Leukocytes +/- 15 Esterase MDM Narrative Medical decision making narrative: Patient's labs were unremarkable. Her urine test and her serum test were both negative. I did inform the patient of this. I do feel that her symptoms are most consistent with PCOS. I do not needed ultrasound diagnose this. Hold on a CT scan or ultrasound for now. She has a nonsurgical abdomen. We did discuss return precautions. The patient expressed understanding and agreement plan. 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 Continue with your control pills. Return to the emergency department for any new or worsening symptoms Prescriptions: No Action fluconazole 150 mg tablet 150 mg PO ONCE Qty: 2 RF: 0 guaifenesin 200 mg tablet 200 mg PO Q4H PRN (Reason: cold symptoms) Qty: 20 RF: 0 pseudoephedrine HCl 60 mg tablet 30 mg PO Q4-6H PRN (Reason: nasal congestion) Qty: 20 RF: 0 ondansetron 8 mg tablet,disintegrating 8 mg PO BID PRN (Reason: nausea and vomiting) Qty: 20 RF: 0 albuterol sulfate [Ventolin HFA] 90 MCG/PUFF HFA aerosol inhaler 2 puff INH QIDP PRNQty: 1 RF: 0 norethindrone acetate [Aygestin] 5 mg tablet 5 mg PO BID Qty: 180 RF: 1 acyclovir 400 mg tablet 400 mg PO BID Qty: 60 RF: 11 ibuprofen 800 mg tablet 800 mg PO Q8H Qty: 20 RF: 0 Referrals: LiliyaJudith, [Primary Care Provider] - Stand Alone Forms: Work Release Note
[2018-11-23 20:10] VITALS: BP 119/67; PULSE 57; RESP 17; O2SAT 97
[2018-11-23 20:54] LABS: Pregnancy Test Serum,Qual Negative (Negative)
[2018-11-23 21:19] VITALS: BP 130/87; PULSE 62; RESP 16; O2SAT 99
== END 2018-11-23 21:29 | disposition home or self-care (01) ==
PROVIDERS: Emergency Provider Emergency Medicine; PCP Family Medicine
DX: R10.30 Lower abdominal pain, unspecified (principal)
CPT/HCPCS: 36591; 80053; 81003; 81015; 81025; 83690; 84703; 85025; 87086; 99282; 99283

== ENCOUNTER 2019-01-03 22:37 | Emergency (ER) | payer OTHER, MEDICAID, SELFPAY ==
[2019-01-03 22:44] VITALS: BP 145/84; PULSE 59; RESP 22; TEMP 36.9; O2SAT 99
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
[2019-01-04 00:16] VITALS: BP 144/81; PULSE 55; RESP 19; O2SAT 98
[2019-01-04] MEDS: SODIUM CHLORIDE 0.9% 1,000 ML 1000 ML IV (00:31)
[2019-01-04] MEDS: KETOROLAC 60 MG/2 ML VIAL 30 MG IV (00:31)
[2019-01-04 00:33] LABS: Add Manual Diff / Slide Review NO; Basophils Absolute Auto 100 /uL (0-100); Eosinophils Absolute Auto 200 /uL (0-450); Eosinophils Percent Auto 2.1 % (2-4); Hematocrit 42.4 % (36-46); Lymphocytes Absolute Auto 3300 /uL (1100-4500); Lymphocytes Percent Auto 36.3 % (25-40); Mean Corpuscular Hemoglobin 28.8 PG (26-34); Mean Corpuscular Volume 87.4 fL (80-100); Monocytes Absolute Auto 800 /uL (0-900); Monocytes Percent Auto 8.4 % (3-14); Neutrophils Absolute Auto 4800 /uL (1500-7000); Neutrophils Percent Auto 52.2 % (50-75); Platelet Count 322 X10^3/uL (150-400); Red Blood Cell Count 4.85 X10^6/uL (4.0-5.2); Red Cell Distribution Width 13.8 % (11.6-14.8); White Blood Cell Count 9.1 X10^3/uL (4.5-11.0)
[2019-01-04 00:44] LABS: Alanine Aminotransferase 13 IU/L (9-52); Albumin 4.2 g/dL (3.5-5.0); Albumin Globulin Ratio 1.4 (1.0-2.8); Alkaline Phosphatase 51 U/L (38-126); Aspartate Aminotransferase 17 IU/L (14-36); BUN Creatinine Ratio 12.9 (6-22); Bilirubin Total 0.5 mg/dL (0.2-1.3); Blood Urea Nitrogen 9 mg/dL (7-17); Calcium 9.9 mg/dL (8.4-10.2); Carbon Dioxide 25 mmol/L (22-32); Chloride 109 mmol/L (98-107); Estimated Glomerular Filt Rate > 60.0 mL/min (>60); Glucose 85 mg/dL (70-100); HEMOLYSIS < 15 (0-50); Lipase 147 U/L (23-300); Potassium 4.3 mmol/L (3.4-5.1); Sodium 142 mmol/L (137-145); Total Protein 7.2 g/dL (6.3-8.2)
[2019-01-04 01:09] VITALS: BP 118/84; PULSE 56; RESP 18; O2SAT 99
[2019-01-04 01:33] LABS: RBC Urine None Seen (0-5/HPF)
[2019-01-04 01:36] LABS: Appearance Urine UA CLEAR; Bilirubin Urine UA NEGATIVE (NEGATIVE); Color Urine UA YELLOW; Glucose Urine UA NEGATIVE (Negative); Ketones Urine UA NEGATIVE (NEGATIVE); Leukocyte Esterase Urine UA NEGATIVE (NEGATIVE); Nitrite Urine UA NEGATIVE (Negative); Occult Blood Urine UA TRACE-LYSED (Negative); Protein Urine UA NEGATIVE (Negative); Specific Gravity Urine UA 1.025 (1.000-1.035); Urobilinogen Urine UA 0.2 E.U./dL (0.2); pH Urine UA 5.5 (4.5-8.0)
[2019-01-04 01:40] LABS: Pregnancy Test Urine Negative (Negative)
[2019-01-04 01:46] LABS: Bacteria Urine Few (2-10); Culture Indicated Urine Cult Not Indicated; Squamous Epithelial Cell Urine 1-5 /HPF (0-5/HPF); WBC Urine 0-1/HPF (0-5/HPF)
[2019-01-04 02:21] VITALS: BP 95/50; PULSE 54; RESP 16; O2SAT 98
[2019-01-04] MEDS: METOCLOPRAMIDE 10 MG/2 ML INJ IV (02:38)
[2019-01-04] MEDS: diphenhydrAMINE 50 MG/ML VIAL IV (02:38)
== END 2019-01-04 03:42 | disposition home or self-care (01) ==
PROVIDERS: Emergency Provider Emergency Medicine; PCP Family Medicine
DX: F43.10 Post-traumatic stress disorder, unspecified (principal); G43.409 Hemiplegic migraine, not intractable, without status migrainosus
CPT/HCPCS: 36591; 80053; 81001; 81025; 83690; 85025; 96361; 96374; 96375; 99283; 99284; J1200; J1885; J2765

== ENCOUNTER 2019-03-13 22:37 | Emergency (ER) | payer OTHER, SELFPAY ==
[2019-03-13 22:43] VITALS: BP 127/75; PULSE 60; RESP 14; TEMP 36.6; O2SAT 98; BMI 42.3
--- NOTE | 2019-03-13 23:55 | PC.NURSE ---
pt reports laying down at home. woke up to Seizure service dog licking her face which she reports has only happened when she has a seizure. reports she usually loses bladder/bowel function and this time she did not. AAOx3, lungs clear, reports having migraine the last 2-3 days. connected to campus monitor. IV obtained and labs sent. awaiting MD assessment
[2019-03-14 00:07] LABS: Add Manual Diff / Slide Review NO; Basophils Absolute Auto 100 /uL (0-100); Basophils Percent Auto 0.6 % (0-2); Eosinophils Absolute Auto 300 /uL (0-450); Hematocrit 41.9 % (36-46); Lymphocytes Absolute Auto 3300 /uL (1100-4500); Lymphocytes Percent Auto 35.5 % (25-40); Mean Corpuscular HGB Conc 33.3 % (30-36); Mean Corpuscular Hemoglobin 28.8 PG (26-34); Mean Corpuscular Volume 86.7 fL (80-100); Monocytes Absolute Auto 700 /uL (0-900); Monocytes Percent Auto 7.9 % (3-14); Neutrophils Absolute Auto 4900 /uL (1500-7000); Platelet Count 309 X10^3/uL (150-400); Red Blood Cell Count 4.84 X10^6/uL (4.0-5.2); Red Cell Distribution Width 13.8 % (11.6-14.8); White Blood Cell Count 9.2 X10^3/uL (4.5-11.0)
[2019-03-14 00:10] LABS: BUN Creatinine Ratio 13.3 (6-22); Blood Urea Nitrogen 8 mg/dL (7-17); Calcium 8.8 mg/dL (8.4-10.2); Carbon Dioxide 24 mmol/L (22-32); Chloride 109 mmol/L (98-107); Estimated Glomerular Filt Rate > 60.0 mL/min (>60); Glucose 106 mg/dL (70-100); HEMOLYSIS 18 (0-50); Potassium 3.9 mmol/L (3.4-5.1); Sodium 140 mmol/L (137-145)
--- NOTE | 2019-03-14 00:11 | ED.SEIZURE ---
HPI - Seizure General Chief Complaint: Seizure Stated Complaint: THINKS POSSIBLY HAD A SEIZURE Time Seen by Provider: 03/14/19 00:02 Source: patient Mode of arrival: ambulatory Limitations: no limitations History of Present Illness HPI Narrative: Patient is a 33-year-old female without proven seizures but states she has a seizure history and her dog licks her face and wakes her up after she has a seizure. She woke up to her dog licking her face and thinks she may have had a seizure. She says sometimes she has urinary incontinence which she did not today sometimes she did bite her tongue she did not do that today either. She overall feels very weak and has body aches all over. She does not go to a neurologist because they have told her that they cannot find the cause of her seizures. She is not on seizure medication. MD complaint: possible seizure Related Data Previous Rx's Medication Instructions Recorded albuterol sulfate [Ventolin HFA] 2 puff INH QIDP PRN #1 ea 10/03/17 ibuprofen 800 mg PO Q8H #20 tab 07/13/18 acyclovir 400 mg tablet 400 mg PO BID #60 tab 11/06/18 norethindrone acetate 5 mg tablet 5 mg PO BID #180 tab 01/08/19 Allergies Allergy/AdvReac Type Severity Reaction Status Date / Time citalopram Allergy Mild DEHYDRATED, Verified 03/13/19 22:42 N/V, MIGRAINES loratadine [From CLARITIN] Allergy Unknown Vomiting Verified 03/13/19 22:42 milk Allergy Unknown Verified 03/13/19 22:42 shellfish derived Allergy Unknown Anaphylaxis Verified 03/13/19 22:42 sumatriptan [From IMITREX] Allergy Unknown Vomiting Verified 03/13/19 22:42 Review of Systems Review of Systems Narrative: GENERAL: Denies chills, fatigue, malaise, fever, sweats, travel HEENT: Denies sinus pain, ear pain, sore throat, difficulty swallowing, neck pain RESPIRATORY: Denies dyspnea, cough, wheezing, hemoptysis, sputum. CARDIOVASCULAR: Denies chest pain, palpitations, orthopnea, edema GASTROINTESTINAL: Denies nausea, vomiting, abdominal pain, diarrhea, constipation, melena. : Denies dysuria, frequency, incontinence, hematuria, urinary retention, flank pain. MUSCULOSKELETAL: Denies weakness, joint pain, or bony pain SKIN: No rash, no erythema, no pruritus NEUROLOGIC: See HPI PSYCHIATRIC: No concerning psychosocial issues. 12 point review of systems is negative except for those stated above and HPI [facility] Medical History Abnormal Pap smear of cervix (Resolved Unknown) Ankle pain (Chronic Unknown) Anxiety (Chronic Unknown) Carpal tunnel syndrome (Chronic Unknown) Chlamydia (Chronic Unknown) Chronic back pain (Chronic Unknown) Depression (Chronic Unknown) Eczema (Chronic Unknown) Foot pain (Chronic Unknown) Fractures (Resolved Unknown) Generalized headaches (Chronic Unknown) Herpes (Chronic Unknown) History of suicide attempt (Resolved) Human papilloma virus (Chronic Unknown) Irregular menses (Chronic Unknown) Kidney stones (Resolved Unknown) Migraines (Chronic Unknown) Ovarian cyst (Chronic Unknown) PCOS (polycystic ovarian syndrome) (Chronic) PID (pelvic inflammatory disease) (Resolved Unknown) PTSD (post-traumatic stress disorder) (Chronic Unknown) Seizures (Chronic Unknown) Shoulder pain (Resolved Unknown) Surgical History History of cryosurgery (Resolved) Status post colposcopy (Resolved) Status post tonsillectomy and adenoidectomy (Resolved) Family History Father Age: 60 High cholesterol Malignant melanoma, unspecified site Grandmother Age: 74 Essential hypertension High cholesterol Lupus Mother Age: 58 Breast cancer High cholesterol Grandmother Cancer of blood vessel Social History Smoking Status: Former smoker alcohol intake: current substance use type: marijuana Family History Father Age: 60 High cholesterol Malignant melanoma, unspecified site Grandmother Age: 74 Essential hypertension High cholesterol Lupus Mother Age: 58 Breast cancer High cholesterol Grandmother Cancer of blood vessel Social History Smoking Status: Former smoker alcohol intake: current substance use type: marijuana Exam Initial Vital Signs Initial Vital Signs: Vital Signs Temperature 97.8 F 03/13/19 22:43 Pulse Rate 60 03/13/19 22:43 Respiratory Rate 14 03/13/19 22:43 Blood Pressure 127/75 03/13/19 22:43 Pulse Oximetry 98 03/13/19 22:43 GENERAL: Well-appearing, well-nourished and in no acute distress. HEENT: Head atraumatic,EOMI, pupils reactive, face symmetric CARDIOVASCULAR: Regular rate and rhythm without murmurs, rubs or gallops. RESPIRATORY: Breath sounds equal bilaterally, no wheezes rales or rhonchi. ABDOMEN: Soft, nontender. Normoactive bowel sounds all 4 quadrants. No guarding or rebound. EXTREMITIES: Normal range of motion, no clubbing or edema. Neurovascularly intact NEUROLOGICAL: Alert and oriented x4.Normal gait and speech. Cranial nerves II through XII grossly intact. All Around Patternmaker strength equal bilaterally SKIN: Warm, dry, no laceration, no petechiae, no rashes or lesions. Course Orders Ordered: ED Orders 03/13/19 23:42 BMP [Basic Metabolic Panel] Stat Complete Blood Count AUTO DIFF Stat Discontinued Medications Sodium Chloride (Normal Saline 0.9%) 1,000 mls @ 1,000 mls/hr IV BOLUS ONE Stop: 03/14/19 01:09 Last Infusion: 03/14/19 01:32 Dose: 0 mls/hr Documented by: Admin: 03/14/19 00:17 Dose: 1,000 mls/hr Documented by: THANIA Ketorolac Tromethamine (Toradol) 30 mg IV NOW ONE Stop: 03/14/19 01:20 Last Admin: 03/14/19 01:24 Dose: 30 mg Documented by: KASSIDY Vital Signs Vital signs: Vital Signs - 8 hr 03/13/19 22:43 03/14/19 01:35 Temperature 97.8 F Pulse Rate 60 57 L Respiratory Rate 14 16 Blood Pressure 127/75 112/67 Pulse Oximetry 98 98 MDM - Seizure Lab Data Result diagrams: 03/13/19 23:42 03/13/19 23:42 Labs: Lab Results 03/13/19 03/13/19 Range/Units 23:42 23:42 WBC 9.2 (4.5-11.0) X10^3/uL RBC 4.84 (4.0-5.2) X10^6/uL Hgb 14.0 (12.0-16.0) g/dL Hct 41.9 (36-46) % MCV 86.7 (80-100) fL MCH 28.8 (26-34) PG MCHC 33.3 (30-36) % RDW 13.8 (11.6-14.8) % Plt Count 309 (150-400) X10^3/uL Neut % (Auto) 53.0 (50-75) % Lymph % (Auto) 35.5 (25-40) % Day % (Auto) 7.9 (3-14) % Eos % (Auto) 3.0 (2-4) % Baso % (Auto) 0.6 (0-2) % Neut # (Auto) 4900 (8515-6643) /uL Lymph # (Auto) 3300 (2286-7022) /uL Day # (Auto) 700 (0-900) /uL Eos # (Auto) 300 (0-450) /uL Baso # (Auto) 100 (0-100) /uL Sodium 140 (137-145) mmol/L Potassium 3.9 (3.4-5.1) mmol/L Chloride 109 H (98-107) mmol/L Carbon Dioxide 24 (22-32) mmol/L BUN 8 (7-17) mg/dL Creatinine 0.60 (0.52-1.04) mg/dL Estimated GFR > 60.0 (>60) mL/min BUN/Creatinine Ratio 13.3 (6-22) Glucose 106 H (70-100) mg/dL Calcium 8.8 (8.4-10.2) mg/dL MDM Narrative Medical decision making narrative: The patient's blood work shows no abnormalities. She is complaining of headache she is given a dose of Toradol and IV fluids. She overall is feeling better. She is requesting a work note. Discharge Plan Departure Patient Disposition: Home Clinical Impression: Feared complaint without diagnosis Discharge Date/Time: 03/14/19 01:40 Instructions: DI for Seizure Disorder -- Adult Activity Restrictions/Additional Instructions: *You have been diagnosed with possible seizure unknown *What to do: Blood work today is reassuring *Continue to take medications as directed *Follow up with your primary care provider in 2-3 days *Return to ER if you should have any new, worsening or concerning symptoms Prescriptions: No Action albuterol sulfate [Ventolin HFA] 90 MCG/PUFF HFA aerosol inhaler 2 puff INH QIDP PRNQty: 1 RF: 0 acyclovir 400 mg tablet 400 mg PO BID Qty: 60 RF: 11 norethindrone acetate [Aygestin] 5 mg tablet 5 mg PO BID Qty: 180 RF: 2 ibuprofen 800 mg tablet 800 mg PO Q8H Qty: 20 RF: 0 Referrals: Judith Lovell DO [Primary Care Provider] - Stand Alone Forms: Work Release Note
[2019-03-14] MEDS: SODIUM CHLORIDE 0.9% 1,000 ML 1000 ML IV (00:17)
[2019-03-14] MEDS: KETOROLAC 60 MG/2 ML VIAL 30 MG IV (01:24)
[2019-03-14 01:35] VITALS: BP 112/67; PULSE 57; RESP 16; O2SAT 98
== END 2019-03-14 01:40 | disposition home or self-care (01) ==
PROVIDERS: Emergency Provider Emergency Medicine; PCP Family Medicine
DX: Z71.1 Person with feared health complaint in whom no diagnosis is made (principal)
CPT/HCPCS: 36591; 80048; 85025; 93041; 96361; 96374; 99283; 99284; J1885